=== PATIENT | female | born 1960 | race Caucasian/White ===

== ENCOUNTER 2021-09-26 08:37 | Outpatient (CLI) | payer OTHER, SELFPAY ==
[2021-09-26 12:14] LABS: Absolute Neutrophil Count 3.5 X10^3/uL (2.0-7.7); Basophil# 0.07 X10^3/uL; Basophil% 1.2 % (0-1); Eosinophil# 0.21 X10^3/uL; Eosinophils% 3.6 % (0-5); Hematocrit 42.2 % (37-47); Hemoglobin 13.8 g/dL (12.0-15.0); Mean Corp Hgb Conc 32.7 g/dL (32-36); Mean Corpuscular Hgb 31.5 pg (27.0-32.0); Mean Corpuscular Volume 96.3 fL (81-99); Mean Platelet Vol. 9.1 fl (6.2-12.0); Monocyte# 0.51 X10^3/uL; Monocyte% 8.8 % (0-10); NRBC Flagged by Analyzer 0 % (0-5); Neutrophil # 3.47 X10^3/uL (2.7-7.7); Neutrophil % 60.1 % (47-70); Platelet Count 279 K/mm3 (150-450); RBC Distribution Width CV 13.2 % (11.6-14.6); RBC Distribution Width SD 47.1 fl (35.1-43.9); Red Blood Count 4.38 M/mm3 (4.2-5.4); White Blood Count 5.8 K/mm3 (4.4-11.0)
[2021-09-26 12:32] LABS: Vitamin D,25 Hydroxy 8.5 ng/mL
[2021-09-26 12:40] LABS: ALB/GLOB Ratio 1.1 RATIO (0.9-2.4); AST(SGOT) 19 U/L (15-37); Alanine Aminotransfer ALT/SGPT 26 U/L (13-56); Alkaline Phosphatase 104 U/L (45-117); Anion Gap 7 (5-15); BUN 18 mg/dL (7-18); BUN/Creat Ratio 23.1 RATIO (10-20); Calcium,Total 9.5 mg/dL (8.5-10.1); Chloride 103 mmol/L (98-107); Cholesterol 160 mg/dL (200); Creatinine, Serum 0.78 mg/dL (0.55-1.02); EST Glomerular Filtration Rate 79 mL/min (>60); Est Glom Filt Rate - Afr Amer 96 mL/min (>60); Free T3 2.9 pg/mL (2.18-3.98); Globulin 3.5 g/dL (2.2-4.2); Glucose 92 mg/dL (74-106); Hemoglobin A1c 5.3 % (3.8-5.6); High Density Lipoprotein 70 mg/dL; Potassium 4.2 mmol/L (3.5-5.1); Protein, Total 7.5 g/dL (6.4-8.2); Sodium Level 137 mmol/L (136-145); T4 Free Direct 1.28 ng/dL (0.76-1.46); Thyroid Stim Hormone (TSH) 0.36 uIU/mL (0.358-3.74); Triglycerides 86 mg/dL; Very Low Density Lipoprotein 17 mg/dL (5-40)
== END 2021-09-26 23:59 | disposition short-term general hospital (02) ==
PROVIDERS: PCP Internal Medicine; Referring Provider Internal Medicine; Visit Provider Internal Medicine
DX: E03.9 Hypothyroidism, unspecified (principal); E78.5 Hyperlipidemia, unspecified
CPT/HCPCS: 36415; 80053; 80061; 82306; 83036; 84439; 84443; 84481; 85025

== ENCOUNTER 2021-10-17 13:22 | Outpatient (CLI) | payer OTHER, SELFPAY ==
--- NOTE | 2021-10-17 13:25 | BI_ITS ---
MAMMOGRAPHY - BILATERAL SCREENING REASON FOR EXAM: Female, 60 years old. Routine annual screening examination. PERTINENT HISTORY: Non-contributory. TECHNIQUE: Digital bilateral breast felix (3D mammographic acquisition) in the CC and MLO projections. 2-D mediolateral oblique (MLO) and craniocaudad (CC) views of both breasts were obtained. CAD: Full Field Digital Mammography with Computer Added Detection was performed. COMPARISON: Comparison is made with prior outside examination dated 08/02/2019 and 07/30/2018 FINDINGS: Breast Composition: There are scattered areas of fibroglandular density. Stable 7.1 mm x 4 mm nodular density in the retroareolar region of the left breast. Correlation with ultrasound is recommended. No other significant abnormalities are identified. BI/SCRN MAMM (CAD)W/FELIX BILAT IMPRESSION: Stable 7.1 mm x 4 mm nodular density in the retroareolar region of the left breast. Correlation with ultrasound is recommended. ASSESSMENT CATEGORY: BIRADS Category 0: Incomplete. Need additional imaging evaluation. A letter regarding these results will be sent to the patient by the facility within 30 days. Approximately 10% of breast cancers are not detected by mammography. A normal mammogram should not delay biopsy of a clinically suspicious abnormality. [id number] Electronically Signed: Vern Man MD at 15:47 EST ,
== END 2021-10-17 23:59 | disposition home or self-care (01) ==
LOC: OPBI 13:24
PROVIDERS: PCP Internal Medicine; Visit Provider Internal Medicine
DX: Z12.31 Encounter for screening mammogram for malignant neoplasm of breast (principal); N63.20 Unspecified lump in the left breast, unspecified quadrant
CPT/HCPCS: 77063; 77067

== ENCOUNTER 2021-10-24 15:22 | Outpatient (CLI) | payer OTHER, SELFPAY ==
--- NOTE | 2021-10-24 15:25 | US_ITS ---
STUDY: ULTRASOUND BREAST - LEFT REASON FOR EXAM: Female, 60 years old. Abnormal screening mammogram. TECHNIQUE: Axial and longitudinal images of the LEFT breast were performed with a high resolution ultrasound transducer. # OF IMAGES: 11 COMPARISON: Comparison is made with prior mammogram dated 10/17/2021. FINDINGS: LEFT Breast: The mammographic abnormality corresponds to a 7 mm x 7 mm x 4 mm well-defined hypoechoic solid nodule. Biopsy recommended. US/Breast Limited Unilateral IMPRESSION: 7 mm x 7 mm x 4 mm well-defined hypoechoic solid nodule in the retroareolar region. Biopsy recommended. ASSESSMENT CATEGORY: BIRADS Category 4: Suspicious - Biopsy Should Be Considered. A letter regarding these results will be sent to the patient by the facility within 30 days. Electronically Signed: Vern Man MD at 14:39 EST ,
== END 2021-10-24 23:59 | disposition home or self-care (01) ==
LOC: OPUS 15:23
PROVIDERS: PCP Internal Medicine; Visit Provider Internal Medicine
DX: R92.8 Other abnormal and inconclusive findings on diagnostic imaging of breast (principal); N63.20 Unspecified lump in the left breast, unspecified quadrant
CPT/HCPCS: 76642

== ENCOUNTER 2021-11-08 13:31 | Outpatient (CLI) | payer OTHER, SELFPAY ==
--- NOTE | 2021-11-08 | IMM_PTH ---
PATIENT: RAÚL CRAIG LOC: [facility] U#:[id number] AGE/SX: 60/F ROOM: RE11/08/[address]: Dr. Sung Cloud MD : 1960 BED: DIS: 11/08/2021 SPEC #: [id number] RECD: 11/12/21 13:41 STATUS: KATHYA REQ #: [id number] SUSAN: 11/08/21 00:[address]: Sung Clodu DEPT: IMMUNOHISTOCHEMISTRY RECD BY: Soumya Back ENTERED: 11/12/21 13:42 SP TYPE: IMMUNO OTHR DR: Dr. Liza Castillo MD Tissues: Left breast, NOS Procedures: CK8 (initial) SMA (add) CALPONIN-1 (add) P40 (add) PHYSICIAN & INSTITUTION [place] [id number] SPECIMEN INFORMATION: Tissue Source: Left breast Clinical Info: Left breast mass Specimen Number: [id number] CPT code: 86872, 29983 x3 METHODOLOGY: Deparaffinized sections of prefer/formalin-fixed tissue or PAP/DQ stained slides are incubated with monoclonal/polyclonal antibodies/oligonucleotide probes. Localization is made via biotin free immunoperoxidase method. Appropriate controls are performed and reacted as expected. Results on target cell population are indicated in the following table: RESULTS: ANTIBODY / CLONE RESULT P40 (BC28) positive Actin (1A4) positive CK8 (90oeavV67) positive Calponin-1 (WA485R) positive These tests were developed and their performance characteristics determined by [facility]. They may not have been cleared or approved by the U.S. Food and Drug Administration. The FDA has determined that such clearance or approval is not necessary. The above immunohistochemical/dualISH markers are ordered and reviewed by the Pathologist. INTERPRETATION: Left breast, 9 o?clock, ultrasound-guided biopsy: Benign breast tissue. AM:evelio 11/13/2021
--- NOTE | 2021-11-08 | BRBX_PTH ---
PATIENT: RAÚL CRAIG LOC: [facility] U#:[id number] AGE/SX: 60/F ROOM: RE11/08/[address]: Dr. Sung Cloud MD : 1960 BED: DIS: 11/08/2021 SPEC #: [id number] RECD: 11/08/21 14:27 STATUS: KATHYA HERNANDEZ #: [id number] SUSAN: 11/08/21 00:[address]: Sung Cloud DEPT: SURGICAL PATHOLOGY RECD BY: Elba Rivas ENTERED: 11/09/21 08:55 SP TYPE: BREAST BX OTHR DR: Dr. Liza Castillo MD Tissues: Left breast, NOS Procedures: Surgery Specimen Level IV HEADER OPERATION: Ultrasound-guided biopsy, left breast PRE-OP DIAGNOSIS: Left breast mass TISSUE SUBMITTED: Left breast mass 9 o?clock retroareolar ISCHEMIC TIME: 1 minute FIXATION TIME: 53 hours MICROSCOPIC DIAGNOSIS Left breast mass, core biopsy: Nonproliferative fibrocystic change and adenosis. Focal intraductal hyperplasia without atypia. No evidence of malignancy. See comment. AM:evelio 11/12/2021 COMMENT Immunohistochemistry ([id number]) supports the above diagnosis. MICROSCOPIC DESCRIPTION Slides are reviewed. GROSS DESCRIPTION Received in fixative is one container labeled with the patient's name and designated left breast. The specimen consists of multiple irregular and elongated fragments of roberson tissue that in aggregate measure 1.6 x 0.5 x 0.1 cm. The specimen is totally submitted in one cassette. / AM:evelio 11/09/2021 TC:5 CPT: 24533
--- NOTE | 2021-11-08 13:35 | US_ITS ---
ULTRASOUND GUIDED CORE BIOPSY REASON FOR EXAM: Female, 60 years old. ABN MAMM PERTINENT HISTORY: Left breast mass COMPARISON: Left breast ultrasound from 10/24/2021 TECHNIQUE: Images taken during breast biopsy by Dr. Cloud were submitted for interpretation. The left retroareolar breast lesion is identified at the 9 o''clock position. A biopsy needle is advanced into the lesion and a sample is taken under ultrasound guidance. A clip is then successfully placed at the site of biopsy utilizing ultrasound. There are no immediate abnormal fluid collections or other acute findings in the submitted images. US/US Breast Biopsy 1st Lesion IMPRESSION: Interpretation of left breast mass ultrasound-guided biopsy as detailed above. Please see intraoperative report for detailed findings. Electronically Signed: Ernesto Oliveira, at 13:35 EDT ,
--- NOTE | 2021-11-08 14:23 | PCM.OP.PRO ---
Procedure Report Date of Procedure: 11/08/21 Procedure: Core needle biopsy of left breast Description: After a detailed discussion regarding the risks and benefits of the biopsy procedure, the patient was positioned supine with her arm overhead in the procedure room. Formal, written consents were obtained prior to positioning. Ultrasound was used to localize the lesion in the retroareolar space at the 9 o'clock position to the left nipple. Locally 1% lidocaine was infiltrated about the mass using ultrasound guidance. Once the area was sufficiently anesthetized, a small stab incision was made in the skin and the Cuedd Cormax device was introduced percutaneously. Ultrasound was used to guide the tip of the device to the border of the suspicious lesion. Then the mass was serially sampled with 3 cores which were placed in solution for pathologic processing. A marking clip was then placed under ultrasound guidance just deep to the mass. Pressure was applied until hemostasis was obtained. The skin was cleaned and Steri-Strips were applied over the stab incision for the biopsy procedure. Patient tolerated the procedure with no issues. EBL: Less than 5 mL Complications: None Procedures Integumentary 16xxx-193xx: 07233 Bx breast 1st lesion us imag
== END 2021-11-08 23:59 | disposition home or self-care (01) ==
PROVIDERS: PCP Internal Medicine; Visit Provider Surgery
DX: N60.12 Diffuse cystic mastopathy of left breast (principal); N60.22 Fibroadenosis of left breast; N62 Hypertrophy of breast
CPT/HCPCS: 19083; 88305; 88341; 88342

== ENCOUNTER 2021-11-21 15:30 | Outpatient (RCR) | payer OTHER, SELFPAY ==
--- NOTE | 2021-10-17 16:35 | HP.PTEVAL ---
Patient's Visit Information RAÚL CRAIG is a 60 year old F referred to Physical Therapy by OSIEL Hilton with a diagnosis of Right Shoulder. Date of Evaluation: 10/17/21 Physical Therapist: Marci Bustillos DPT - Visit Plan Frequency: 2x /Week Duration: 4 Weeks Plan: Focus on scapular s/s- and functional movement without pain - Subjective May 2019 she injured her right RTC- started bothering her Mar 2020. October 2020 she had her first injection and then had another one a week or two ago. She reports that her bicep is shredding and that is a constant pain. The injection took the shoulder pain away but she still has the biceps pain. The pain comes and goes- takes Naproxen with hopes that it helps. Agg: movement Worst: 8/10 Eases: keeping it close to her Best: 0/10. Pain is located along the biceps- describes the pain as a knife in her arm. Pain does not radiate at this time. Does have carpal tunnel so she has no N/T due to the shoulder. No BATES, blurred vision, dizziness. No problems with finger dexterity or chainstitch zipper setter strength. 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 Right hand dominate. Feels that she is 100% better since the injection- except the muscle. Sleep: no issues- side sleeper. Has had x-rays but no MRI at this time. PMHx/Meds: no changes since ortho. - Objective Posture: FH, RS- can correct with verbal cues but does not maintain. Palpation: tender along bicipital groove and infraspinatus. ROM: WFL in all planes- discomfort with end range abduction. Strength: Scap: fair plus, Shoulder: 4+/5 with discomfort ER testing, Elbow: 5/5, Wrist: 5/5, Refrigerator Repairman: equal bilateral. Sensation: WNL - Special Tests R Shoulder Lift Off Test - Subscapular Tear: Positive R Shoulder Empty Can - SS: Positive R Shoulder Belly Press - SupScap: Positive R Shoulder Neer - Impingement: Positive R Shoulder Nguyen Sebastien - Impingement: Positive R Shoulder Speeds Test - Labrum/Biceps: Positive - Balance/Special Test Scores Quick DASH Score: 29.5450 - Goals Goal 1:: Patient will be I with HEP and progression Goal Time Frame: 4-6 Weeks Goal 2:: Patient will maintain proper posture t/o tx session to demo increased scap s/s. Goal Time Frame: 4-6 Weeks Goal 3:: Patient will report no more than 2/10 pain for 1 week Goal Time Frame: 4-6 Weeks Goal 4:: Patient will report 80% improvement subjectively. Goal Time Frame: 4-6 Weeks - Rehabilitation Potential Physical Therapy Diagnosis: Patient present with hypomobility- she has decreased pain free ROM, UE and scapular s/s and muscular endurance leading to poor posture and increased pain with ADL's. Rehabilitation Potential: Fair - Anticipated Interventions Patient/Client Instruction: Educate patient on: Benefits of Fitness Program Therapeutic Exercise to Include: Strength training, Endurance training, Coordination, Agility training, Body mechanics, Postural training, Flexibilty training, Neuromotor development, Passive ROM, Active ROM, Scapular Strength/Stabilization For the Purpose of:: To improve muscle performance and motor function TENS: Yes Cryotherapy (ice pack, ice massage): Yes Thermo therapy (hot pack): Yes Ultrasound (thermal/non thermal): Yes For the Purpose of:: To decrease pain Thank you for the opportunity to evaluate your patient. For Medicare and Medicare HMO plans, please review the plan of care and approve it. It will need to be FAXED BACK to us at [phone] for Medicare purposes. For Medicare only, by signing this I certify the plan of care. Please let me know if there are questions or concerns regarding this plan of care. Physician Signature: Date:
--- NOTE | 2021-11-21 16:26 | HP.PTDCSUM ---
It has been my pleasure to treat RAÚL CRAIG referred by OSIEL iHlton, with the diagnosis of Right Shoulder for a total of 9 visit(s). Discharge Date: 11/21/21 Please see the following information for a summary of their discharge status. Subjective: Doing better ..certain movements side to side and pulling Right shoulder Pain Intensity (Out of 10): 3 Left shoulder Pain Intensity (Out of 10): 6 % Improvement: 80 Objective/Function: POSTURE: mild forward posture. MMT: RTC 4/5 ,DELTOID 4-/5 MILD PAIN. AROM: SHOULDER FLEXION/ABD 160 degrees. ER 90M ,IR REACH BEHIND BACK L1 Goal 1:: Patient will be I with HEP and progression Goal Progress: Goal Met Goal 2:: Patient will maintain proper posture t/o tx session to demo increased scap s/s. Goal Progress: Progressing Goal 3:: Patient will report no more than 2/10 pain for 1 week Goal Progress: Progressing Goal 4:: Patient will report 80% improvement subjectively. Goal Progress: Goal Met Plan: D/C TO HEP Discharge Comments: HEP,MAY NEED TO RTD TO CHECK LEFT SHOULDER APPEAR LONG HEAD BICEP TENDINISTIS If there are questions or concerns regarding this patient's physical therapy, please feel free to call me at [phone]. Thank you for the referral of this patient. Sincerely, Suresh Warner, PT, Cert MDT, OCS Balance/Gait/Functional tests - Balance/Special Test Scores Quick DASH Score: 29.5450
== END 2021-11-21 19:00 | disposition home or self-care (01) ==
LOC: PT 15:30
PROVIDERS: PCP Internal Medicine; Referring Provider Physician Assistant; Visit Provider Physician Assistant
DX: M75.21 Bicipital tendinitis, right shoulder (principal); M75.41 Impingement syndrome of right shoulder
CPT/HCPCS: 97110; 97530

== ENCOUNTER 2021-11-29 16:38 | Outpatient (CLI) | payer OTHER, SELFPAY | END 2021-11-29 23:59 | disposition home or self-care (01) | LOC: LABSPEC 16:39 | PROVIDERS: PCP Internal Medicine; Visit Provider Surgery | DX: N61.1 Abscess of the breast and nipple (principal) | CPT/HCPCS: 87070; 87075; 87077; 87186; 87205 ==

== ENCOUNTER → 2021-12-19 | Outpatient (CLI) | payer OTHER, SELFPAY ==
[2021-12-19 13:27] LABS: M R Staph aureus DNA By PCR Negative (Negative); Probe Check PASS; Specimen Processing Control PASS
== END | disposition home or self-care (01) ==
LOC: LABSPEC 11:10
PROVIDERS: PCP Internal Medicine; Referring Provider Surgery; Visit Provider Surgery
DX: Z22.322 Carrier or suspected carrier of Methicillin resistant Staphylococcus aureus (principal)
CPT/HCPCS: 87641

== ENCOUNTER → 2022-03-25 | Outpatient (CLI) | payer OTHER, SELFPAY ==
[2022-03-25 16:39] LABS: ALB/GLOB Ratio 1.1 RATIO (0.9-2.4); AST(SGOT) 18 U/L (15-37); Alanine Aminotransfer ALT/SGPT 32 U/L (13-56); Albumin, Serum 3.9 g/dL (3.2-5.0); Alkaline Phosphatase 96 U/L (45-117); Anion Gap 7 (5-15); BUN 15 mg/dL (7-18); BUN/Creat Ratio 14.3 RATIO (10-20); Calcium,Total 9.7 mg/dL (8.5-10.1); Chloride 106 mmol/L (98-107); Cholesterol 184 mg/dL (200); Creatinine, Serum 1.05 mg/dL (0.55-1.02); EST Glomerular Filtration Rate 56 mL/min (>60); Est Glom Filt Rate - Afr Amer 68 mL/min (>60); Free T3 2.8 pg/mL (2.18-3.98); Globulin 3.4 g/dL (2.2-4.2); Glucose 98 mg/dL (74-106); High Density Lipoprotein 75 mg/dL; Potassium 3.8 mmol/L (3.5-5.1); Protein, Total 7.3 g/dL (6.4-8.2); Sodium Level 141 mmol/L (136-145); T4 Free Direct 1.43 ng/dL (0.76-1.46); Triglycerides 280 mg/dL; Very Low Density Lipoprotein 56 mg/dL (5-40)
== END | disposition home or self-care (01) ==
LOC: LAB 14:15
PROVIDERS: PCP Internal Medicine; Referring Provider Internal Medicine; Visit Provider Internal Medicine
DX: E55.9 Vitamin D deficiency, unspecified (principal)
CPT/HCPCS: 36415; 80053; 80061; 82306; 84439; 84443; 84481

== ENCOUNTER → 2022-05-20 | Outpatient (CLI) | payer OTHER, SELFPAY ==
--- NOTE | 2022-05-20 08:55 | US_ITS ---
STUDY: ULTRASOUND BREAST - LEFT REASON FOR EXAM: Female, 61 years old. Six-month follow-up following left breast biopsy. TECHNIQUE: Axial and longitudinal images of the LEFT breast were performed with a high resolution ultrasound transducer. # OF IMAGES: 15 COMPARISON: Comparison is made with prior study dated 10/24/2021. FINDINGS: LEFT Breast: Stable 6 mm x 6 mm x 5 mm hypoechoic well-defined nodule at the 9 o''clock position of the breast. A tissue marker is seen within it. US/Breast Limited Unilateral IMPRESSION: Stable appearance of the hypoechoic nodule at the 9 o''clock position the breast in the retroareolar region. A tissue clip marker is seen within it. ASSESSMENT CATEGORY: BIRADS Category 2: Benign. A letter regarding these results will be sent to the patient by the facility within 30 days. Electronically Signed: Vern Man MD at 10:49 EDT ,
== END | disposition home or self-care (01) ==
LOC: OPUS 08:53
PROVIDERS: PCP Internal Medicine; Visit Provider Surgery
DX: N63.20 Unspecified lump in the left breast, unspecified quadrant (principal); Z98.890 Other specified postprocedural states
CPT/HCPCS: 76642

== ENCOUNTER → 2022-06-27 | Outpatient (CLI) | payer OTHER, SELFPAY ==
[2022-06-27 17:26] LABS: Free T3 2.8 pg/mL (2.18-3.98); T4 Free Direct 1.26 ng/dL (0.76-1.46); Thyroid Stim Hormone (TSH) 0.69 uIU/mL (0.358-3.74)
== END | disposition home or self-care (01) ==
LOC: LAB 16:10
PROVIDERS: PCP Internal Medicine; Visit Provider Internal Medicine
DX: E03.9 Hypothyroidism, unspecified (principal)
CPT/HCPCS: 36415; 84439; 84443; 84481

== ENCOUNTER 2022-10-16 07:17 | Day surgery (SDC) | payer OTHER, SELFPAY ==
[2022-10-16] VITALS (7 sets, daily range): BP systolic 95–133; BP diastolic 50–68; PULSE 72–93; RESP 16–18; TEMP 36.3–36.6; O2SAT 94–99; BMI 32.8
[2022-10-16] MEDS: Lactated Ringers 1,000 ML 15 ML IV (07:55)
--- NOTE | 2022-10-16 08:08 | H&P.OPEN ---
HPI - General HPI Narrative RAÚL CRAIG, is a 61 F who presents for screening colonoscopy. Patient's last colonoscopy was in [address] Ramirez had a couple polyps at that time. Patient denies any family history of colon cancer. Patient denies any chronic abdominal pain/nausea/vomiting/reflux. Patient has bowel movements daily. Denies any blood PFSH Medical History (Updated 10/16/22 @ 08:[address] Erika Ennis MD) Alcohol use Back pain Cardiology follow-up encounter Difficulty chewing Easy bruising Former smoker Gastric reflux High cholesterol History of edema History of irregular heartbeat History of pain when walking History of stress test Hyperlipemia Hypothyroidism Leg cramps Low iron Nonhealing surgical wound Post-menopausal Shortness of breath on exertion Thyroid disease Ulnar neuropathy at elbow Wears dentures Wears glasses Home Medications miscellaneous medical supply #1 ea 10/11/21 [Rx Last Taken Unknown] levothyroxine 137 mcg tablet 137 mcg PO DAILY #90 tabs 04/26/22 [Rx Last Taken 10/16/22] cholecalciferol (vitamin D3) 25 mcg (1,000 unit) capsule 25 mcg PO BID 09/12/22 [History Last Taken Unknown] simvastatin 10 mg tablet 10 mg PO QHS #90 tabs 09/30/22 [Rx Last Taken Unknown] naproxen 250 mg tablet 220 mg PO DAILY 10/11/22 [History Last Taken Unknown] potassium chloride 10 mEq tablet,extended release (Klor-Con) 10 meq PO QHS 10/11/22 [History Last Taken Unknown] Allergy/AdvReac Type Severity Reaction Status Date / Time Sulfa (Sulfonamide Allergy Hives Verified 10/16/22 07:43 Antibiotics) Family History Grandfather Cancer Grandmother Myocardial infarction Diabetes Mother Cerebral hemorrhage Father Hypertension Gout Surgical History (Updated 10/11/22 @ 15:47 by Michelle Elkins) H/O colonoscopy History of History of left breast biopsy History of removal of cyst Social History Smoking Status: Former smoker Tobacco: How many years used: 21 alcohol intake: current alcohol intake frequency: 0-2 drinks per day Alcohol type: beer substance use type: does not use what type of physical activity do you participate in: walking Past Medical/Surgical History Planned Operation Planned Operative Procedure/s: CSCOPE OA Previous Hospitalizations/Surgeries HX Hospitalizations: No Any Problems With Anesthesia: No You/Your Family Experience Fever (Hyperthermia) With Anes: No Cholinesterase deficiency: No Cardiovascular Hx of Irregular Heartbeat and/or Afib: Yes Hx Heart Attack: No Hx Congestive Heart Failure: No Hx Rheumatic Fever: No Hx Hypertension: No Hx Internal Defibrillator: No Hx Pacemaker: No Hx Pain in Legs when Walking/Leg Cramps: Yes Respiratory HX of Shortness of Breath: No Hx Chronic Obstructive Pulmonary Disease (COPD): No Hx Asthma: No Hx Emphysema: No Hx Sleep Apnea: No Hx Respiratory Tract Infection/Cold (presently): No Do You Snore Loudly (louder than talking or can be heard): Yes Do You Often Feel Tired/ Fatigued/ Sleepy Dring Daytime?: Yes Has Anyone Observed You Stop Breathing During Sleep?: No Result (for STOP score): Positive Smoking Status: Former smoker Gastrointestinal Hx Gastroesophageal Reflux: No Hx Gastrointestinal Bleed: No Hx Ulcer: No Neurological Hx Seizures: No Hx Multiple Sclerosis: No Hx Parkinson's Disease: No Hx Head/Neck Injury: No Hx Headaches: No Hx Back Injury/Pain: No Does patient have nerve stimulator: No Blood Disorder Hx High Cholesterol: Yes Hx Hepatitis: No Hx Anemia: No Reproduction : No Is Patient Lactating: No Genitourinary Hx Renal Disease: No Hx Dialysis: No Musculoskeletal Hx Arthritis: No Hx Gout: No Endocrine Hx Diabetes: No Thyroid Disease: Yes Psycho/Social Hx Anxiety: No Hx Depression: No Hx Dementia: No Miscellaneous Hx Cancer: No Recent Exposure to Contagious Disease: No Allergies Sulfa (Sulfonamide Antibiotics) Allergy (Verified 10/16/22 07:43) Hives Discharge Is Pt Admitted From a Skilled Nursing, or a Usp: No After D/C, Where Do you Plan to Go: Return Home From the [facility] History Number of Risk Factors: 2 Vital Signs Vital Signs Vital Signs: 10/16/22 07:52 10/16/22 07:52 Temperature 97.4 F L Temperature Source Temporal Pulse Rate 93 Respiratory Rate 16 Respiratory Pattern Normal Blood Pressure 133/68 H Blood Pressure Mean 89 Blood Pressure Source Monitor Blood Pressure Position Sitting Blood Pressure Location Left Arm Pulse Ox 99 Oxygen Delivery Method Room Air Weight Weight: 209 lb 7.026 oz Body Mass Index (BMI) 32.8 Physical Exam Const alert, oriented x3 and no apparent distress HEENT normocephalic and head/scalp atraumatic Resp normal respiratory effort Cardio regular rate GI soft to palpation and non-tender; Negative for non-distended Palpation: Negative for guarding Extremity no clubbing, cyanosis or edema Neuro CN's II-XII intact bilaterally Psych mental status grossly normal Assessment & Plan Assessment/Plan (1) Hx of colonic polyps: Surgery Risks - Colonoscopy Risks Include but are not Limited To: Risks include but are not limited to: Bleeding, perforation requiring further surgery, inability to complete colonoscopy requiring barium enema.
--- NOTE | 2022-10-16 09:22 | OP.COLON_ITS ---
Patient Name: Blas Ayala Procedure Date: 10/16/2022 8:47 AM Date of : 1960 Age: 61 Procedure: Colonoscopy Indications: High risk colon cancer surveillance: Personal history of colonic polyps Providers: Erika Ennis MD Medicines: Monitored Anesthesia Care Patient Profile: This is a 61 year old female. Last Colonoscopy: 2011. Complications: No immediate complications. Procedure: Pre-Anesthesia Assessment: - Prior to the procedure, a History and Physical was performed, and patient medications and allergies were reviewed. The patient's tolerance of previous anesthesia was also reviewed. The risks and benefits of the procedure and the sedation options and risks were discussed with the patient. All questions were answered, and informed consent was obtained. Prior Anticoagulants: The patient has taken no previous anticoagulant or antiplatelet agents. ASA Grade Assessment: Per anesthesia. After reviewing the risks and benefits, the patient was deemed in satisfactory condition to undergo the procedure. After I obtained informed consent, the scope was passed under direct vision. Throughout the procedure, the patient's blood pressure, pulse, and oxygen saturations were monitored continuously. The Colonoscope was introduced through the anus and advanced to the cecum, identified by the appendiceal orifice, ileocecal valve and palpation. The colonoscopy was performed without difficulty. The patient tolerated the procedure well. The quality of the bowel preparation was good. Scope In: 9:00:24 AM Scope Withdrawal Time 0 hours 6 minutes 27 seconds Scope Out: 9:14:35 AM Total Procedure Duration Time 0 hours 14 minutes 11 seconds Findings: Hemorrhoids were found on perianal exam. Non-bleeding internal hemorrhoids were found. The hemorrhoids were Grade I (internal hemorrhoids that do not prolapse). The entire examined colon appeared normal. Impression: - Hemorrhoids found on perianal exam. - Non-bleeding internal hemorrhoids. - The entire examined colon is normal. - No specimens collected. Recommendation: - Discharge patient to home. - Resume previous diet. - Continue present medications. - Repeat colonoscopy in 10 years for screening purposes. Procedure Code(s): --- Professional --- G0105, PT, Colorectal cancer screening; colonoscopy on individual at high risk Diagnosis Code(s): --- Professional --- Z86.010, Personal history of colonic polyps K64.0, First degree hemorrhoids CPT copyright 2017 [employer] [place] [employer]. All rights reserved. The codes documented in this report are preliminary and upon aeronautics teacher review may be revised to meet current compliance requirements. MD Erika Lozano MD 10/16/2022 9:22:12 AM This report has been signed electronically. Number of Addenda: 0 Note Initiated On: 10/16/2022 8:47 AM
--- NOTE | 2022-10-16 09:23 | OP.CCLET_ITS ---
10/16/2022 Liza Castillo [facility] [address] [place] [address] Re : Colonoscopy procedure for Blas Ayala Dear Dr. Castillo This procedure was performed on Sunday, October 16, 2022. My impressions and recommendations are as follows: Impressions : - Hemorrhoids found on perianal exam. - Non-bleeding internal hemorrhoids. - The entire examined colon is normal. - No specimens collected. Recommendations : - Discharge patient to home. - Resume previous diet. - Continue present medications. - Repeat colonoscopy in 10 years for screening purposes. My findings are described in the full procedure note, which is enclosed. If I can be of further assistance, please feel free to contact me at Doctor phone number(s): , Work: . Sincerely, MD Erika Lozano MD 10/16/2022 9:22:12 AM This report has been signed electronically.
== END 2022-10-16 10:51 | disposition home or self-care (01) ==
LOC: EN 07:18 → AC 07:20
PROVIDERS: PCP Internal Medicine; Referring Provider Internal Medicine; Visit Provider Surgery
PROC: 0DJD8ZZ Inspection of Lower Intestinal Tract, Via Natural or Artificial Opening Endoscopic (ICD-10-PCS; CPT 45378; principal; 2022-10-16 08:10)
DX: Z12.11 Encounter for screening for malignant neoplasm of colon (principal); K64.0 First degree hemorrhoids; E78.00 Pure hypercholesterolemia, unspecified; E03.9 Hypothyroidism, unspecified; Z79.899 Other long term (current) drug therapy; Z86.010 Personal history of colon polyps; Z87.891 Personal history of nicotine dependence
CPT/HCPCS: G0105; J7120; J2405

== ENCOUNTER → 2022-10-28 | Outpatient (CLI) | payer OTHER, SELFPAY ==
--- NOTE | 2022-10-28 08:43 | BI_ITS ---
MAMMOGRAPHY - BILATERAL SCREENING REASON FOR EXAM: Female, 61 years old. Routine annual screening examination. PERTINENT HISTORY: Non-contributory. Prior left ultrasound-guided breast biopsy. TECHNIQUE: Digital bilateral breast felix (3D mammographic acquisition) in the CC and MLO projections. 2-D mediolateral oblique (MLO) and craniocaudad (CC) views of both breasts were obtained. CAD: Full Field Digital Mammography with Computer Added Detection was performed. COMPARISON: Comparison is made with prior study dated October 17, 2021. FINDINGS: Breast Composition: There are scattered areas of fibroglandular density. There are no dominant masses or suspicious calcifications. A tissue clip marker is now seen within a 6 mm nodular density in the retroareolar region of the left breast. No other significant abnormalities are identified. There has been no significant change since the prior study. BI/SCRN MAMM (CAD)W/FELIX BILAT IMPRESSION: Stable bilateral screening mammogram. Yearly follow-up mammogram recommended. (A) ASSESSMENT CATEGORY: BIRADS Category 2: Benign. A letter regarding these results will be sent to the patient by the facility within 30 days. Approximately 10% of breast cancers are not detected by mammography. A normal mammogram should not delay biopsy of a clinically suspicious abnormality. [id number] Electronically Signed: Vern Man MD at 9:55 EST ,
== END | disposition home or self-care (01) ==
LOC: OPBI 08:41
PROVIDERS: PCP Internal Medicine; Visit Provider Surgery
DX: Z12.31 Encounter for screening mammogram for malignant neoplasm of breast (principal)
CPT/HCPCS: 77063; 77067

== ENCOUNTER → 2022-11-04 | Outpatient (CLI) | payer OTHER, SELFPAY ==
--- NOTE | 2022-11-04 15:35 | NEURO ---
NCS and/or EMG Patient Report Ordering Doctor: Harjinder Jurado DATE OF SERVICE: 11/04/22 Indication: Approximately two months of numbness and tingling in the 4/5th digits of the left hand. 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 No axial or radicular neck pain. Evaluate for entrapment neuropathy. Findings: Nerve conduction studies were performed in the left upper extremity. The left median motor study recording the abductor pollicis brevis showed a normal amplitude, prolonged distal latency and normal conduction velocity. The left ulnar motor study recording the abductor digiti minimi showed a normal amplitude, normal distal latency and normal conduction velocity. Conduction block and focal slowing was present across the elbow. The left ulnar motor study recording the first dorsal interosseous showed a normal amplitude, normal distal latency and normal conduction velocity. Conduction block and focal slowing was present across the elbow. The left median sensory response recording digit two showed a reduced amplitude, prolonged latency and slowed conduction velocity. The left ulnar sensory response recording digit five showed a normal amplitude, latency and conduction velocity. The left radial sensory response recording over the extensor snuff box showed a normal amplitude, latency and conduction velocity. Needle EMG of the left upper extremity muscles was performed. Active denervation was seen in the flexor digitorum profundus (medial) and first dorsal interosseous muscles. Motor units in the flexor digitorum profundus (medial) and first dorsal interosseous were largely normal in morphology, but with significantly reduced recruitment. All other motor unit morphology, activation and recruitment patterns were normal. Impression: This is an abnormal study. There is electrophysiologic evidence of ulnar neuropathy across the elbow. The pathophysiology is predominately demyelination. In addition, there is electrophysiologic evidence of a concurrent, mild, median neuropathy across the left wrist. Adrian Suh D.O. Multi Select Codes Neurology Neurology Interp Codes: 98497-46 Musc test done w/n test comp (interp) and 06061-67 Nrv cndj test 7-8 studies (interp)
== END | disposition home or self-care (01) ==
LOC: PSN 14:25
PROVIDERS: PCP Internal Medicine; Referring Provider Orthopaedic Surgery Sports Medicine; Visit Provider Orthopaedic Surgery Sports Medicine
DX: G56.22 Lesion of ulnar nerve, left upper limb (principal)
CPT/HCPCS: 95886; 95910

== ENCOUNTER 2022-12-11 06:05 | Day surgery (SDC) | payer OTHER, SELFPAY ==
[2022-12-11 06:39] VITALS: BP 98/64; PULSE 55; RESP 18; TEMP 36.1; O2SAT 100; BMI 31.6
[2022-12-11] MEDS: Lactated Ringers 1,000 ML 15 ML IV ×2 (06:39→08:20)
--- NOTE | 2022-12-11 07:06 | PCM.HP.STD ---
HPI - General HPI Narrative RAÚL CRAIG, is a 62 F who presents for left elbow tunnel release. No changes to history and physical exam. Left upper extremity marked. 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 Leave the dressing on until follow-up in 2 days time. Will use local anesthetic try to avoid postoperative narcotics with simply oral Tylenol and anti-inflammatories. Patient understood wishes to proceed no further questions or concerns. [facility] [address] [place] [address] OFFICE VISIT Date of Service:? 11/19/22 MR#: [id number] Acct: [id number] Name:RAÚL PERALTA Rep #: [id number] : 1960 ? ? Provider: Dr. Harjinder Jurado MD Age/Sex:? 61/F ? ? Location: [facility] Status: Signed Intake Vital Signs ? 09/12/2315:24 10/16/2306:52 Height 5 ft 7 in 5 ft 7 in Intake Visit Reasons:?LEFT HAND Chief Complaint: fingers numb on left hand Is patient in pain?: Yes Pain scale (1-10): 8 Allergies Sulfa (Sulfonamide Antibiotics) Allergy (Verified 11/19/22 15:30) Hives Medications miscellaneous medical supply #1 ea 10/11/21 [Rx Confirmed 11/19/22] levothyroxine 137 mcg tablet 137 mcg PO DAILY #90 tabs 04/26/22 [Rx Confirmed 11/19/22] cholecalciferol (vitamin D3) 25 mcg (1,000 unit) capsule 25 mcg PO BID 09/12/22 [History Confirmed 11/19/22] simvastatin 10 mg tablet 10 mg PO QHS #90 tabs 09/30/22 [Rx Confirmed 11/19/22] naproxen 250 mg tablet 220 mg PO DAILY 10/11/22 [History Confirmed 11/19/22] potassium chloride 10 mEq tablet,extended release (Klor-Con) 10 meq PO QHS 10/11/22 [History Confirmed 11/19/22] PFSH Medical History? Alcohol use Back pain Cardiology follow-up encounter Difficulty chewing Easy bruising Former smoker Gastric reflux High cholesterol History of edema History of irregular heartbeat History of pain when walking History of stress test Hyperlipemia Hypothyroidism Left carpal tunnel syndrome Leg cramps Low iron Nonhealing surgical wound Post-menopausal Shortness of breath on exertion Thyroid disease Ulnar neuropathy at elbow Wears dentures Wears glasses Surgical History? H/O colonoscopy History of History of left breast biopsy History of removal of cyst Family History? Grandfather CancerGrandmother Myocardial infarction DiabetesMother Cerebral hemorrhageFather Hypertension Gout Social History? Smoking Status:? Former smoker Tobacco: How many years used:? 21 alcohol intake:? current alcohol intake frequency: 0-2 drinks per day Alcohol type: beer substance use type:? does not use what type of physical activity do you participate in:? walking HPI LEFT HAND Details: Parts of this documentation were recorded by a scribe, this documentation accurately reflects the service provided and the decisions made by me, Dr. Harjinder Jurado MD 11/19/22 3054. RAÚL CRAIG is a 61 year old F here today for? FU NCS for cubital tunnel syndrome.? Patient only gets symptoms in the fourth and fifth digit numbness and tingling pain radiating from the elbow.? Never any numbness or tingling in the thumb index or middle finger.? 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 Ortho Exam General General: Yes no acute distress Neurologic: Yes alert and Yes oriented x3 Psychologic: Yes reasonable and appropriate Right Wrist/Hand Skin/Wound: No Ecchymosis Left Wrist/Hand Skin/Wound: Yes CDI, No Ecchymosis, Yes nail intact, Yes capillary refill normal and No erythema Left Wrist: No Tinel's and No Phalen's Left Elbow Skin/Wound: Yes CDI ROM: Yes Flexion 0-140 Sensation: Radial: I, Ulnar: D and Median: I Motor: 1st Dorsal Interosseous: 4 ELBOW: pos wartenburg sign. Supplemental Info [facility] [address] [address] MR#:? [id number] Acct: [id number] Name: RAÚL CRAIG Rep #: [id number] :? 1960 ?61 From: Israel Suh DO Referring Dr: ? ? Harjinder Jurado MD Status:? REG CLI Location:? PSN Date:? 11/04/22 Sex: F C NCS and/or EMG Patient Report Ordering Doctor: Harjinder Jurado DATE OF SERVICE: 11/04/22 Indication: Approximately two months of numbness and tingling in the 4/5th digits of the left hand. 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 No axial or radicular neck pain. Evaluate for entrapment neuropathy. Findings: Nerve conduction studies were performed in the left upper extremity. The left median motor study recording the abductor pollicis brevis showed a normal amplitude, prolonged distal latency and normal conduction velocity. The left ulnar motor study recording the abductor digiti minimi showed a normal amplitude, normal distal latency and normal conduction velocity. Conduction block and focal slowing was present across the elbow. The left ulnar motor study recording the first dorsal interosseous showed a normal amplitude, normal distal latency and normal conduction velocity. Conduction block and focal slowing was present across the elbow. The left median sensory response recording digit two showed a reduced amplitude, prolonged latency and slowed conduction velocity. The left ulnar sensory response recording digit five showed a normal amplitude, latency and conduction velocity. The left radial sensory response recording over the extensor snuff box showed a normal amplitude, latency and conduction velocity. Needle EMG of the left upper extremity muscles was performed.? Active denervation was seen in the flexor digitorum profundus (medial) and first dorsal interosseous muscles.? Motor units in the flexor digitorum profundus (medial) and first dorsal interosseous were largely normal in morphology, but with significantly reduced recruitment. All other motor unit morphology, activation and recruitment patterns were normal.? Impression: This is an abnormal study.? There is electrophysiologic evidence of ulnar neuropathy across the elbow. The pathophysiology is predominately demyelination. In addition, there is electrophysiologic evidence of a concurrent, mild, median neuropathy across the left wrist. Adrian Suh D.O. Multi Select Codes Neurology Neurology Interp Codes: 62561-05 Musc test done w/n test comp (interp) and 96443-46 Nrv cndj test 7-8 studies (interp) Coding Level of Care Code Off vis,est,level 3 Diagnoses Ulnar nerve entrapment? G56.20 Left carpal tunnel syndrome? G56.02 Assessment and Plan Assessment and Plan (1) Ulnar nerve entrapment: ?Status:?Acute ?Plan: 61 year old F here today for? FU NCS for left cubital tunnel syndrome. Test shows cubital tunnel syndrome and mild CTS. the patient has no signs or clinical symptoms of carpal tunnel syndrome this seems mostly consistent with cubital tunnel syndrome therefore after discussion of the pros and cons risks and benefits of going ahead with left elbow cubital tunnel release we have decided to proceed in that manner, without adding on the carpal tunnel release.? Certainly if the patient develops signs or symptoms consistent with the carpal tunnel syndrome could consider doing that at a later date although for now this is mild without subjective sensations there.? Certainly given the intrinsic muscle wasting and weakness there this may take a bit longer to improve although given the positive physical exam and nerve conduction studies with failure of conservative management this is indicated to go ahead with left elbow cubital tunnel release.? Patient signed consent form for that as well as possible need for blood products. Pros and cons risks and benefits were discussed with the patient including but not limited to infection, pain, stiffness, bleeding, damage to surrounding structures, neurovascular injury, recurrence or retear, failure or wear of hardware or fixation, instability, fracture, deep vein thrombosis and pulmonary embolism, anesthetic risks, , patient dissatisfaction, need for further surgery and other risks.? Patient understood and wished to proceed with surgery, and signed the informed consent documentation. [facility] Medical History Alcohol use Back pain Cardiology follow-up encounter Difficulty chewing Easy bruising Former smoker Gastric reflux High cholesterol History of edema History of irregular heartbeat History of pain when walking History of stress test Hyperlipemia Hypothyroidism Left carpal tunnel syndrome Leg cramps Low iron Nonhealing surgical wound Post-menopausal Shortness of breath on exertion Thyroid disease Ulnar neuropathy at elbow Wears dentures Wears glasses Home Medications miscellaneous medical supply #1 ea 10/11/21 [Rx Last Taken Unknown] levothyroxine 137 mcg tablet 137 mcg PO DAILY #90 tabs 04/26/22 [Rx Last Taken 12/11/22] cholecalciferol (vitamin D3) 25 mcg (1,000 unit) capsule 25 mcg PO BID 09/12/22 [History Last Taken Unknown] simvastatin 10 mg tablet 10 mg PO QHS #90 tabs 09/30/22 [Rx Last Taken Unknown] naproxen 250 mg tablet 220 mg PO DAILY 10/11/22 [History Last Taken 11/13/22] potassium chloride 10 mEq tablet,extended release (Klor-Con) 10 meq PO QHS 10/11/22 [History Last Taken Unknown] albuterol sulfate 90 mcg/actuation aerosol inhaler 2 puff inhalation BID BRONCHITIS 12/04/22 [History Last Taken Unknown] Allergy/AdvReac Type Severity Reaction Status Date / Time Sulfa (Sulfonamide Allergy Hives Verified 12/11/22 06:37 Antibiotics) Family History Grandfather Cancer Grandmother Myocardial infarction Diabetes Mother Cerebral hemorrhage Father Hypertension Gout Surgical History (Updated 12/04/22 @ 14:39 by Medina Montemayor) H/O colonoscopy History of History of left breast biopsy History of removal of cyst Hx of colonoscopy Social History Smoking Status: Former smoker Tobacco: How many years used: 21 alcohol intake: current alcohol intake frequency: 0-2 drinks per day Alcohol type: beer substance use type: does not use what type of physical activity do you participate in: walking Vital Signs Vital Signs Vital Signs: 12/11/22 06:39 12/11/22 06:39 Temperature 96.9 F L Temperature Source Temporal Pulse Rate 55 L Respiratory Rate 18 Respiratory Pattern Normal Blood Pressure 98/64 Blood Pressure Mean 75 Blood Pressure Source Monitor Blood Pressure Position Semi-Fowlers Blood Pressure Location Right Arm Pulse Ox 100 Oxygen Delivery Method Room Air Weight Weight: 202 lb Body Mass Index (BMI) 31.6
[2022-12-11] MEDS: Cefazolin 2 GM in 0.9% Normal Saline 100 ML IV (07:28)
--- NOTE | 2022-12-11 08:23 | OP.PCM_ITS ---
Problems Associated Problem List Diagnoses (1) Ulnar nerve entrapment: Report of Operation Date of Procedure: 12/11/22 Pre-Operative Diagnosis: Left elbow cubital tunnel syndrome Post-Operative Diagnosis: Same Surgery/Procedure Performed:: Left elbow cubital tunnel release Surgeon: Harjinder Jurado Type of Anesthesia: General and Local Anesthesiologist: Esdras Mobley Estimated Blood Loss (mL): 15cc Description of Procedure: Patient brought to the operating room theater. Placed supine on the operating room table. Hand table to the patient's left side. 18 inch tourniquet he applied to the left upper extremity appropriately padded. 2 g IV Ancef administered prior to the start of the procedure. General anesthesia induced. Left upper extremity prepped and draped in the usual sterile fashion regards to the base prep solution lying over 3 minutes drying time prior to draping. Preoperative timeout performed to confirm the site the patient and the surgery. All bony prominences appropriately padded. SCDs on the legs. Began by using a sterile #exsanguinating the limb inflating the tourniquet to 250 mmHg. Made a standard curvilinear incision at the medial aspect of the elbow directly over the ulnar nerve. Carried the dissection down through skin and subcutaneous tissue achieved meticulous hemostasis. Identified the ulnar nerve proximally. Released all the tissues over top of the nerve. Released all 5 sites of compression proximal medial intermuscular septum , arcade of str uthers fascia, Littlejohn's ligament Littlejohn's fascia between the 2 heads of the FCU both superficial and deep fascia, distally down to the level of the first motor branch. No impingement on the medial epicondyle. No snapping of the nerve the nerve tended to ride up towards medial epicondyle in full flexion beyond 140 degrees, but no nerve instability therefore decided to not do a transposition, leave the ulnar nerve in situ. Tourniquet let down meticulous hemostasis achieved. Used bipolar cautery. Subcutaneous tissue closed with 2-0 vicryl, skin with 3-0 monocryl. Skin cleaned with wet and dry dressing 10 cc quarter percent bupivacaine around the incision site. Steri-Strips applied followed by Adaptic 4 x 4 gauze loosely wrapped 4 inch Ken wrap. Case terminated dressing drapes and tourniquet removed. Patient woken up from the general anesthetic transferred off the operating table and taken to postanesthetic care unit in stable condition. All sponge needle instrument counts were correct no complications. Plan for the patient gentle range of motion no heavy lifting or gripping follow-up in the office in 2 days time. Complications none Admit VTE Documentation VTE Present on Admission: No VTE Mechan Device Prophylaxis: SCD's Reason prophylaxis not ordered:: Treatment Not Indicated Procedures Musculoskeletal 20xxx-29xxx: Other Procedure See Report
[2022-12-11 08:30] VITALS: BP 129/68; BP 98/64; PULSE 68; RESP 17; TEMP 36.3; O2SAT 96
--- NOTE | 2022-12-11 08:32 | DCINST_ITS ---
Discharge Instructions Diet Discharge Diet: No restrictions Activity Ice area for (Minutes): 10 Lifting Restrictions: ROM ok, no heavy lifting Dressing / Incision Call your doctor if your incision/area has: Continuous Slow Oozing, Sudden Increased Bleeding, Increased Pain/ Swelling, Increased Redness, Foul Smelling Discharge and Swelling at the incision site Remove Dressing in: leave in place till F/U Follow Up Care Please Follow Up With: Harjinder Jurado MD When: 2 days Test Results: Test results from this visit will be discussed in further detail at your follow- up appointment, if applicable. Discharge Plan Admission Attending Provider: Harjinder Jurado Primary Care Provider: Liza Castillo Discharge Orders/Prescriptions Prescriptions: No Action cholecalciferol (vitamin D3) 25 mcg (1,000 unit) capsule 25 mcg PO BID naproxen 250 mg Tablet 220 mg PO DAILY potassium chloride [Klor-Con 10] 10 mEq tablet extended release 10 meq PO QHS albuterol sulfate 90 mcg/actuation HFA aerosol inhaler 2 puff INHALATION BID Label Comments: Inhale 2 puffs every 4-6 hours for 7 days (DME) miscellaneous medical supply Misc See Rx Instructions .ROUTE .MEDSUPPLY Qty: 1 0RF Rx Instructions: As directed bilateral knee hi Compression stockings 20-30 mmHg apply in the AM and remove at bedtime levothyroxine 137 mcg tablet 137 mcg PO DAILY Qty: 90 3RF simvastatin 10 mg tablet 10 mg PO QHS Qty: 90 3RF Referrals / Follow Up: Liza Castillo MD [Primary Care Provider] - Harjinder Jurado MD [Med Staff - Active Staff] - Disposition Disposition (needs filled in before D/C Order can be placed): Home, Self Care
[2022-12-11 08:45] VITALS: BP 124/61; BP 98/64; PULSE 60; RESP 16; O2SAT 96
[2022-12-11 09:00] VITALS: BP 128/62; BP 98/64; PULSE 58; RESP 16; O2SAT 98
[2022-12-11 09:14] VITALS: BP 125/70; BP 98/64; PULSE 55; RESP 16; TEMP 36.4; O2SAT 95
[2022-12-11] MEDS: HYDROcodone Bitartrate/Apap 5/325 Tablet PO (09:33)
[2022-12-11 10:48] VITALS: BP 123/56; BP 98/64; PULSE 47; RESP 16; TEMP 36.4; O2SAT 98
== END 2022-12-11 11:13 | disposition home or self-care (01) ==
LOC: SDC 06:06 → AC 06:08
PROVIDERS: PCP Internal Medicine; Referring Provider Orthopaedic Surgery Sports Medicine; Visit Provider Orthopaedic Surgery Sports Medicine
PROC: (CPT 64718; principal; 2022-12-11 07:15)
DX: G56.22 Lesion of ulnar nerve, left upper limb (principal); E78.00 Pure hypercholesterolemia, unspecified; E03.9 Hypothyroidism, unspecified; E66.9 Obesity, unspecified; Z68.31 Body mass index [BMI] 31.0-31.9, adult; Z79.899 Other long term (current) drug therapy; Z87.891 Personal history of nicotine dependence
CPT/HCPCS: 64718; 01710; J7120; J2405

== ENCOUNTER → 2023-03-28 | Outpatient (CLI) | payer OTHER, SELFPAY ==
[2023-03-28 10:26] LABS: Absolute Lymphocyte Count 1.77 X10^3/uL (0.83-4.51); Absolute Neutrophil Count 2.9 X10^3/uL (2.0-7.7); Basophil# 0.05 X10^3/uL; Basophil% 0.9 % (0-1); Eosinophil# 0.27 X10^3/uL; Hematocrit 42.6 % (37-47); Hemoglobin 14.3 g/dL (12.0-15.0); Lymphocyte # 1.77 X10^3/ul (0.83-4.51); Lymphocyte % 32.6 % (19-41); Mean Corp Hgb Conc 33.6 g/dL (32-36); Mean Corpuscular Hgb 31.8 pg (27.0-32.0); Mean Corpuscular Volume 94.7 fL (81-99); Mean Platelet Vol. 9.4 fl (6.2-12.0); Monocyte# 0.41 X10^3/uL; Monocyte% 7.6 % (0-10); NRBC Flagged by Analyzer 0 % (0-5); Neutrophil # 2.92 X10^3/uL (2.7-7.7); Neutrophil % 53.7 % (47-70); Platelet Count 252 K/mm3 (150-450); RBC Distribution Width CV 12.6 % (11.6-14.6); RBC Distribution Width SD 43.3 fl (35.1-43.9); White Blood Count 5.4 K/mm3 (4.4-11.0)
[2023-03-28 10:51] LABS: Vitamin D,25 Hydroxy 124.1 ng/mL
[2023-03-28 11:00] LABS: ALB/GLOB Ratio 1.1 RATIO (0.9-2.4); AST(SGOT) 18 U/L (15-37); Alanine Aminotransfer ALT/SGPT 28 U/L (13-56); Albumin, Serum 3.6 g/dL (3.2-5.0); Alkaline Phosphatase 131 U/L (45-117); Anion Gap 6 (5-15); BUN 17 mg/dL (7-18); BUN/Creat Ratio 18.5 RATIO (10-20); Chloride 108 mmol/L (98-107); Cholesterol 163 mg/dL (200); Creatinine, Serum 0.92 mg/dL (0.55-1.02); EST Glomerular Filtration Rate 65 mL/min (>60); Est Glom Filt Rate - Afr Amer 79 mL/min (>60); Free T3 2.6 pg/mL (2.18-3.98); Globulin 3.2 g/dL (2.2-4.2); Glucose 103 mg/dL (74-106); High Density Lipoprotein 69 mg/dL; Magnesium 2.2 mg/dL (1.6-2.6); Protein, Total 6.8 g/dL (6.4-8.2); Sodium Level 140 mmol/L (136-145); Thyroid Stim Hormone (TSH) 1.22 uIU/mL (0.358-3.74); Triglycerides 126 mg/dL; Very Low Density Lipoprotein 25 mg/dL (5-40)
== END | disposition home or self-care (01) ==
LOC: LAB 09:34
PROVIDERS: PCP Internal Medicine; Referring Provider Internal Medicine; Visit Provider Internal Medicine
DX: R60.0 Localized edema (principal); E55.9 Vitamin D deficiency, unspecified; E66.9 Obesity, unspecified; E78.1 Pure hyperglyceridemia; E78.5 Hyperlipidemia, unspecified; E03.9 Hypothyroidism, unspecified; Z13.220 Encounter for screening for lipoid disorders; Z86.79 Personal history of other diseases of the circulatory system
CPT/HCPCS: 36415; 80053; 80061; 82306; 83735; 84439; 84443; 84481; 85025

== ENCOUNTER → 2023-10-01 | Outpatient (CLI) | payer OTHER, SELFPAY ==
[2023-10-01 12:13] LABS: Vitamin D,25 Hydroxy 102.7 ng/mL
[2023-10-01 12:29] LABS: Free T3 2.6 pg/mL (2.18-3.98); T4 Free Direct 1.28 ng/dL (0.76-1.46); Thyroid Stim Hormone (TSH) 1.12 uIU/mL (0.358-3.74)
--- OUTSIDE RECORDS SUMMARY | 2023-10-01 13:08 | XMS RPT_ITS | CCD ---
Author Name Unknown Address [address] [place] [address] Organization [facility] Care Team Providers Care Manager Image Name Role Phone MAHOGANY YE Unavailable Unavailable MINAL KAUFMAN Unavailable Unavailable MAHOGANY YE Unavailable Unavailable TALAMPAS MINAL Unavailable Unavailable TALAMPAS, MINAL Unavailable Unavailable MAHOGANY YE Unavailable Unavailable MAHOGANY YE Unavailable Unavailable LASHONDAAMPMIMI MINAL Unavailable Unavailable Minal Kaufman MD Primary Care Provider Allergies Allergy Classification Reported Allergen(s) Allergy Type Date of Onset Reaction(s) Facility (3 sources) Sulfonamides (Antibiotic); Translations: [SULFA (SULFONAMIDE ANTIBIOTICS)] Propensity to adverse reactions to drug (disorder) 5 Rash [facility] Other [place] [facility] Medications Completed/Discontinued Medications Medication Drug Class(es) Dates Sig (Normalized) Sig (Original) levothyroxine sodium 0.137 mg oral tablet (1 source) l-Thyroxine Start: 08-14-2021 take 1 tablet by mouth once daily before breakfast levothyroxine (SYNTHROID) 137 mcg tablet Indications: Encounter for long-term current use of medication Take 1 tablet by mouth daily before breakfast. 30 tablet 0 08/14/2021 Active Problems Active Problems Problem Classification Problem Date Documented Date Episodic/Chronic Cardiac dysrhythmias (3 sources) Supraventricular tachycardia; Translations: [Supraventricular tachycardia] Onset: 02-27-2011 02-27-2011 Chronic Disorders of lipid metabolism (1 source) Mixed hyperlipidemia; Translations: [Mixed hyperlipidemia] 07-08-2016 Chronic Other diseases of veins and lymphatics (1 source) Bilateral lower limb edema; Translations: [Chronic venous hypertension (idiopathic) without complications of bilateral lower extremity] Onset: 07-28-2017 07-28-2017 Chronic Other nervous system disorders (1 source) Carpal tunnel syndrome; Translations: [Carpal tunnel syndrome, unspecified upper limb] 08-20-2021 Chronic Other nutritional; endocrine; and metabolic disorders (1 source) Obese class I; Translations: [Obesity, unspecified] Onset: 09-16-2018 09-16-2018 Chronic Other screening for suspected conditions (not mental disorders or infectious disease) (1 source) Patient encounter status; Translations: [Encounter for screening mammogram for malignant neoplasm of breast] Episodic Other upper respiratory disease (1 source) Allergic rhinitis; Translations: [Allergic rhinitis, unspecified] Onset: 01-26-2007 01-26-2007 Chronic Thyroid disorders (1 source) Hypothyroidism; Translations: [Hypothyroidism, unspecified] Onset: 02-27-2011 02-27-2011 Chronic Unclassified (1 source) Unknown / UNK(Unknown) Onset: 11-11-2017 Past or Other Problems Problem Classification Problem Date Documented Da te Episodic/Chronic Other connective tissue disease (1 source) Calcaneal spur; Translations: [Calcaneal spur, unspecified foot] Onset: 04-01-2012 04-01-2012 Episodic Results Test Name Value Interpretation Reference Range Facil ity Encounters Encounter Date Encounter Type Care Provider Facility Start: 02-20-2022 ambulatory Minal birch MD Work Phone: Internal Medicine [facility] [place] Start: 11-11-2018 Ambulatory MAHOGANY YE Facility :[facility] Start: 11-11-2017 End: 11-11-2017 Ambulatory MAHOGANY YE [facility] Procedures Date Procedure Procedure Detail Performing Clinician Start: 10-04-2019 Adult depression scr eening assessment Minal Kaufman MD Work Phone: Start: 08-02-2019 Mammography Minal hollis MD Work Phone: Start: 07-09-2012 Colonoscopy Minal hollis MD Work Phone: Plan of Treatment Date Care Activity Detail Author Start: 10-01-2024 LIPID SCREEN LIPID SCREEN [facility] Start: 10-01-2022 DIABETES SCREEN DIABETES SCREEN [facility] Start: 07-09-2022 Colonoscopy COLONOSCOPY [facility] Start: 07-09-2022 COLORECTAL CANCER SCREENING COLORECTAL CANCER SCREENING [facility] Start: 04-25-2022 Influenza vaccination INFLUENZA (#1) [facility] Start: 08-30-2021 Urine microalbumin profile DTAP,TDAP,TD (2 - Td or Tdap) [facility] Start: 10-04-2020 Adult depression screening assessment DEPRESSION SCREENING [facility] Start: 10-04-2020 ANNUAL PCP TEAM CHRONIC DISEASE VISIT ANNUAL PCP TEAM CHRONIC DISEASE VISIT [facility] Start: 08-02-2020 Mammography MAMMOGRAM [facility] Start: 11-16-2018 HPV TESTING HPV TESTING [facility] Start: 11-16-2018 PAP TESTING PAP TESTING [facility] Start: 2008 SHINGRIX VACCINE (1 of 2) SHINGRIX VACCINE (1 of 2) [facility] Start: 12-07-2003 COLOGUARD (FIT-DNA) COLOGUARD (FIT-DNA) [facility] Start: 12-07-[address] COLONOGRAPHY [facility] Start: 12-07-2003 FECAL OCCULT BLOOD FECAL OCCULT BLOOD [facility] Start: 12-07-2003 SIGMOIDOSCOPY SIGMOIDOSCOPY [facility] Start: 1976 HEPATITIS C SCREENING HEPATITIS C SCREENING [facility] Start: 1976 HIV SCREENING HIV SCREENING [facility] Start: 06-07-1959 COVID-19 VACCINE (#1) COVID-19 VACCINE (#1) [facility] End: 03-22-2023 Screening mammography bi 2-view breast inc cad SEA SCREENING Radiology Routine Encounter for screening mammogram for breast cancer 1 Occurrences starting 02/20/2022 until 03/22/2023 [facility] Work Phone: Immunizations Immunization Date Immunization Notes Care Provider Fa cility 07-05-2018 influenza virus vacc ine, unspecified formulation Minal Kaufman MD Work Phone: [facility] 08-30-2011 tetanus toxoid, redu sarai diphtheria toxoid, and acellular pertussis vaccine, adsorbed Minal Kaufman MD Work Phone: [facility] Payers Date Payer Category Payer Unknown [employer] [id number] 2020-Present [phone] [address] [place] [address] Indemnity [id number] Medicaid [id number] Social History Date Type Detail Facility Tobacco smoking stat us NHIS Ex-smoker [facility] End: 03-04-2002 History of tobacco use Current smoker [facility] End: 03-04-2002 History of tobacco use Cigarette Smoker [facility] Start: 10-04-2019 Alcohol intake Current drinke r of alcohol (finding) [facility] Start: 10-04-2019 History SDOH Alcohol Frequency 2 [facility] Start: 10-04-2019 History SDOH Alcohol Std Drinks 1 [facility] Start: 10-04-2019 History SDOH Social Connections Phone 3 [facility] Start: 10-04-2019 History SDOH Social Connections Meetings 98 [facility] Start: 10-04-2019 History SDOH Social Connections Living 5 [facility] Start: 10-04-2019 History SDOH Physica l Activity DPW 0 [facility] Start: 10-04-2019 Education 21 [facility] Start: 1960 Sex Assigned At Not on file C [facility] Clinical Note 02-20-2022 Note Date & Type Note Facility 02-20-2022 Note Patient Outreach (IN TMMN) RAÚL CRAIG ([id number]) 1960 F Date Time Provider Department 02/20/22 MINAL KAUFMAN During your visit today, we recorded the following information about you: Allergies As of Date: 02/20/2022 Noted Allergy Reaction SULFA (SULFONAMIDE ANTIBIOTICS) 01/04/2015 2 - Rash Comments: Developed rash truncal on Bactrim DS Date Reviewed: 10/04/2019 Reviewed by: Shauna Kerr LPN - Fully Assessed Visit Diagnosis:Encounter for screening mammogram for breast cancer [Z12.31] Order(s):SEA SCREENING [[id number]] Order #: [id number] FUTURE Prescriptions as of 02/25/2022 - levothyroxine (SYNTHROID) 137 mcg tablet Take 1 tablet by mouth daily before breakfast. - simvastatin (ZOCOR) 10 mg tablet Take 1 tablet by mouth daily at bedtime. - potassium chloride ER (K-DUR, KLOR-CON) 20 mEq tablet Take 1 tablet by mouth once daily. Problem List As Of Date 02/20/2022 Noted Resolved Pain in joint, shoulder region [M25.519] 05/23/2006 08/01/2014 ALLERGIC RHINITIS NOS [J30.9] 01/26/2007 Pain in limb [M79.609] 01/03/2009 08/01/2014 Pain in joint, ankle and foot [M25.579] 02/03/2009 08/01/2014 PSVT (paroxysmal supraventricular tachycardia) *02/27/2011 Hypothyroidism [E03.9] 02/27/2011 CTS (carpal tunnel syndrome) [G56.00] Calcaneal spur [M77.30] 04/01/2012 Mixed hyperlipidemia [E78.2] Ill-fitting dentures [K08.89, Z97.2] 11/18/2014 09/16/2018 Stasis edema of both lower extremities [I87.303]07/28/2017 Obesity, Class I, BMI 30-34.9 [E66.9] 09/16/2018 Encounter Status:Closed by ANKITA REYNOSO on 02/25/22 [facility] Clinical Note 03-16-2021 Note Date & Type Note Facility 03-16-2021 Note Patient Outreach (IN TMMN) RAÚL CRAIG ([id number]) 1960 F Date Time Provider Department 03/16/21 MINAL KAUFMAN During your visit today, we recorded the following information about you: Allergies As of Date: 03/16/2021 Noted Allergy Reaction SULFA (SULFONAMIDE ANTIBIOTICS) 01/04/2015 2 - Rash Comments: Developed rash truncal on Bactrim DS Date Reviewed: 10/04/2019 Reviewed by: Shauna Kerr LPN - Fully Assessed Visit Diagnosis:Encounter for screening mammogram for breast cancer [Z12.31] Order(s):[facility] SCREENING [[id number]] Order #: [id number] FUTURE Prescriptions as of 03/19/2021 - levothyroxine (SYNTHROID) 137 mcg tablet Take 1 tablet by mouth daily before breakfast. - simvastatin (ZOCOR) 10 mg tablet Take 1 tablet by mouth daily at bedtime. - potassium chloride ER (K-DUR, KLOR-CON) 20 mEq tablet Take 1 tablet by mouth once daily. - naproxen (NAPROSYN) 500 mg tablet Take 1 tablet by mouth twice daily as needed. FOR PAIN. TAKE WITH FOOD. - VIT A/VIT C/BIOFLAV/ZN/HERB25 (ECHINACEA ACZ ORAL) Take 760 mg by mouth once daily. Problem List As Of Date 03/16/2021 Noted Resolved Pain in joint, shoulder region [M25.519] 05/23/2006 08/01/2014 ALLERGIC RHINITIS NOS [J30.9] 01/26/2007 Pain in limb [M79.609] 01/03/2009 08/01/2014 Pain in joint, ankle and foot [M25.579] 02/03/2009 08/01/2014 PSVT (paroxysmal supraventricular tachycardia) *02/27/2011 Hypothyroidism [E03.9] 02/27/2011 CTS (carpal tunnel syndrome) [G56.00] Calcaneal spur [M77.30] 04/01/2012 Mixed hyperlipidemia [E78.2] Ill-fitting dentures [K08.89, Z97.2] 11/18/2014 09/16/2018 Stasis edema of both lower extremities [I87.303]07/28/2017 Obesity, Class I, BMI 30-34.9 [E66.9] 09/16/2018 Encounter Status:Closed by ANGELES, PRODUSER on 03/19/21 [facility] History of Past illness Narrative 11-18-2014 Note Date & Type Note Facility documented as of this encounter (statuses as of 02/25/2022) [facility] Evaluation note Note Date & Type Note Facility documented in this encounter [facility] Reason for referral (narrative) Diagnostic Procedure Only (Routine) - Pending Review Note Date & Type Note Facility Referral ID Status Reason Start Date Expiration Date Visits Requested Visits Authorized [id number] Pending Review Auto-Generat ed Referral 02/20/2022 03/22/2023 1 1 [facility] Summary Purpose Family History No Family History Records FoundNo Family History Records FoundNo Family History Records Found Advance Directives No Advanced Directives Records FoundNo Advanced Directives Records FoundNo Advanced Directives Records Found Additional Source Comments INFORMATION SOURCE (unrecogn ized section and content) DATE CREATED AUTHOR AUTHOR'S ORGANIZ ATION 02/13/2018 [facility] DATE CREATED AUTHOR AUTHOR'S ORGANIZ ATION 02/25/2022 [facility] Source Comments (unrecognize d section and content) In the event this informatio n is protected by the Federal Confidentiality of Alcohol and Drug Abuse Patient Records regulations: The Federal rules restrict any use of the information to criminally investigate or prosecute any alcohol or drug abuse patient.[facility] Care Teams (unrecognized sec tion and content) FOR RECORDS PERTAINING TO PATIENTS WHO ARE OR HAVE BEEN ENROLLED IN A CHEMICAL DEPENDENCY/SUBSTANCEABUSE PROGRAM, SOME INFORMATION MAY BE OMITTED. This clinical summary was aggregated from multiple sources. Caution should be exercised in using it in the provision of clinical care. This summary normalizes information from multiple sources, and as a consequence, information in this document may materially change the coding, format and clinical context of patient data. In addition, data may be omitted in some cases. CLINICAL DECISIONS SHOULD BE BASED ON THE PRIMARY CLINICAL RECORDS. [employer] [facility]. provides no warranty or guarantee of the accuracy or completeness of information in this document.
== END | disposition home or self-care (01) ==
LOC: LAB 10:31
PROVIDERS: PCP Internal Medicine; Referring Provider Internal Medicine; Visit Provider Internal Medicine
DX: E03.9 Hypothyroidism, unspecified (principal); E55.9 Vitamin D deficiency, unspecified; E66.9 Obesity, unspecified
CPT/HCPCS: 36415; 82306; 84439; 84443; 84481

== ENCOUNTER → 2023-10-31 | Outpatient (CLI) | payer OTHER, SELFPAY ==
--- NOTE | 2023-10-31 08:36 | BI_ITS ---
MAMMOGRAPHY - BILATERAL SCREENING 3-D TOMOSYNTHESIS REASON FOR EXAM: Female, 62 years old. Breast CA screening, hx breast mass PERTINENT HISTORY: No significant family history. TECHNIQUE: 2-D mammograms and 3-D Tomosynthesis of the breast (s) were performed. CAD was performed. COMPARISON: 10/28/2022 FINDINGS: The breast composition is composed of scattered fibroglandular density. Scattered benign calcifications are seen. No dense spiculated masses or suspicious microcalcifications are identified. No architectural distortion is identified. There is no skin thickening or retraction. There has been no significant change since the prior study. BI/SCRN MAMM (CAD)W/FELIX BILAT IMPRESSION: No mammographic signs of malignancy. Routine yearly mammograms recommended. ASSESSMENT CATEGORY: BIRADS Category 1: Negative. A letter regarding these results will be sent to the patient by the facility within 30 days. FOLLOW UP RECOMMENDATION: Yearly follow up mammogram recommended. (A) Approximately 10% of breast cancers are not detected by mammography. A normal mammogram should not delay biopsy of a clinically suspicious abnormality. Electronically Signed: Cornelius Gallo MD at 14:04 EST ,
--- OUTSIDE RECORDS SUMMARY | 2023-10-31 08:57 | XMS RPT_ITS | CCD ---
Author Name Unknown Address [address] [place] [address] Organization [facility] Care Team Providers Care Sales Training Coordinator Name Role Phone MAHOGANY YE Unavailable Unavailable [...] adverse reactions to drug (disorder) 5 Rash [facility] Other [place] [facility] Medications Completed/Discontinued Medications Medication Drug Class(es) [...] birch MD Work Phone: Internal Medicine [facility] [place] Start: 11-11-2018 Ambulatory MAHOGANY YE Facility :[facility] Start: 11-11-2017 End: 11-11-2017 Ambulatory MAHOGANY YE [facility] Procedures Date Procedure Procedure Detail Performing Clinician Start: 10-04-2019 Adult depression scr eening assessment Minal Kaufman MD Work Phone: Start: 08-02-2019 Mammography Minal hollis MD Work Phone: Start: 07-09-2012 Colonoscopy Minal hollis MD Work Phone: Plan of Treatment Date Care Activity Detail Author Start: 10-01-2024 LIPID SCREEN LIPID SCREEN [facility] Start: 10-01-2022 DIABETES SCREEN DIABETES SCREEN [facility] Start: 07-09-2022 Colonoscopy COLONOSCOPY [facility] Start: 07-09-2022 COLORECTAL CANCER SCREENING COLORECTAL CANCER SCREENING [facility] Start: 04-25-2022 Influenza vaccination INFLUENZA (#1) [facility] Start: 08-30-2021 Urine microalbumin profile DTAP,TDAP,TD (2 - Td or Tdap) [facility] Start: 10-04-2020 Adult depression screening assessment DEPRESSION SCREENING [facility] Start: 10-04-2020 ANNUAL PCP TEAM CHRONIC DISEASE VISIT ANNUAL PCP TEAM CHRONIC DISEASE VISIT [facility] Start: 08-02-2020 Mammography MAMMOGRAM [facility] Start: 11-16-2018 HPV TESTING HPV TESTING [facility] Start: 11-16-2018 PAP TESTING PAP TESTING [facility] Start: 2008 SHINGRIX VACCINE (1 of 2) SHINGRIX VACCINE (1 of 2) [facility] Start: 12-07-2003 COLOGUARD (FIT-DNA) COLOGUARD (FIT-DNA) [facility] Start: 12-07-[address] COLONOGRAPHY [facility] Start: 12-07-2003 FECAL OCCULT BLOOD FECAL OCCULT BLOOD [facility] Start: 12-07-2003 SIGMOIDOSCOPY SIGMOIDOSCOPY [facility] Start: 1976 HEPATITIS C SCREENING HEPATITIS C SCREENING [facility] Start: 1976 HIV SCREENING HIV SCREENING [facility] Start: 06-07-1959 COVID-19 VACCINE (#1) COVID-19 VACCINE (#1) [facility] End: 03-22-2023 Screening mammography bi 2-view breast inc cad SEA SCREENING Radiology Routine Encounter for screening mammogram for breast cancer 1 Occurrences starting 02/20/2022 until 03/22/2023 [facility] Work Phone: Immunizations Immunization Date Immunization Notes Care Provider Fa cility 07-05-2018 influenza virus vacc ine, unspecified formulation Minal Kaufman MD Work Phone: [facility] 08-30-2011 tetanus toxoid, redu sarai diphtheria toxoid, and acellular pertussis vaccine, adsorbed Minal Kaufman MD Work Phone: [facility] Payers Date Payer Category Payer Unknown [employer] [id number] 2020-Present [phone] [address] [place] [address] Indemnity [id number] Medicaid [id number] Social History Date Type Detail Facility Tobacco smoking stat us NHIS Ex-smoker [facility] End: 03-04-2002 History of tobacco use Current smoker [facility] End: 03-04-2002 History of tobacco use Cigarette Smoker [facility] Start: 10-04-2019 Alcohol intake Current drinke r of alcohol (finding) [facility] Start: 10-04-2019 History SDOH Alcohol Frequency 2 [facility] Start: 10-04-2019 History SDOH Alcohol Std Drinks 1 [facility] Start: 10-04-2019 History SDOH Social Connections Phone 3 [facility] Start: 10-04-2019 History SDOH Social Connections Meetings 98 [facility] Start: 10-04-2019 History SDOH Social Connections Living 5 [facility] Start: 10-04-2019 History SDOH Physica l Activity DPW 0 [facility] Start: 10-04-2019 Education 21 [facility] Start: 1960 Sex Assigned At Not on file C [facility] Clinical Note 02-20-2022 Note Date & Type Note Facility 02-20-2022 Note Patient Outreach (IN TMMN) RAÚL CRAIG ([id number]) 1960 F Date Time Provider Department 02/20/22 [...] mammogram for breast cancer [Z12.31] Order(s):SEA SCREENING [[id number]] Order #: [id number] FUTURE Prescriptions as of 02/25/2022 - levothyroxine [...] Encounter Status:Closed by ANKITA REYNOSO on 02/25/22 [facility] Clinical Note 03-16-2021 Note Date & Type Note Facility 03-16-2021 Note Patient Outreach (IN TMMN) RAÚL CRAIG ([id number]) 1960 F Date Time Provider Department 03/16/21 MINAL KAUFMAN During your visit today, we recorded the following information about you: Allergies As of Date: 03/16/2021 Noted Allergy Reaction SULFA (SULFONAMIDE ANTIBIOTICS) 01/04/2015 2 - Rash Comments: Developed rash truncal on Bactrim DS Date Reviewed: 10/04/2019 Reviewed by: Shauna Kerr LPN - Fully Assessed Visit Diagnosis:Encounter for screening mammogram for breast cancer [Z12.31] Order(s):[facility] SCREENING [[id number]] Order #: [id number] FUTURE Prescriptions as of 03/19/2021 - levothyroxine [...] Encounter Status:Closed by ANGELES, PRODUSER on 03/19/21 [facility] History of Past illness Narrative 11-18-2014 Note Date & Type Note Facility documented as of this encounter (statuses as of 02/25/2022) [facility] Evaluation note Note Date & Type Note Facility documented in this encounter [facility] Reason for referral (narrative) Diagnostic Procedure Only (Routine) - Pending Review Note Date & Type Note Facility Referral ID Status Reason Start Date Expiration Date Visits Requested Visits Authorized [id number] Pending Review Auto-Generat ed Referral 02/20/2022 03/22/2023 1 1 [facility] Summary Purpose Family History No Family History Records FoundNo Family History Records FoundNo Family History Records Found Advance Directives No Advanced Directives Records FoundNo Advanced Directives Records FoundNo Advanced Directives Records Found Additional Source Comments INFORMATION SOURCE (unrecogn ized section and content) DATE CREATED AUTHOR AUTHOR'S ORGANIZ ATION 02/13/2018 [facility] DATE CREATED AUTHOR AUTHOR'S ORGANIZ ATION 02/25/2022 [facility] Source Comments (unrecognize d section and content) In the event this informatio n is protected by the Federal Confidentiality of Alcohol and Drug Abuse Patient Records regulations: The Federal rules restrict any use of the information to criminally investigate or prosecute any alcohol or drug abuse patient.[facility] Care Teams (unrecognized sec tion and [...] BE BASED ON THE PRIMARY CLINICAL RECORDS. [employer] [facility]. provides no warranty or guarantee of the accuracy or completeness of information in this document.
== END | disposition home or self-care (01) ==
LOC: OPBI 08:35
PROVIDERS: PCP Internal Medicine; Referring Provider Surgery; Visit Provider Surgery
DX: Z12.31 Encounter for screening mammogram for malignant neoplasm of breast (principal)
CPT/HCPCS: 77063; 77067

== ENCOUNTER → 2024-02-12 | Outpatient (CLI) | payer MEDICARE, SELFPAY ==
--- NOTE | 2024-02-12 12:59 | RAD_ITS ---
STUDY: X-RAY - RIGHT KNEE REASON FOR EXAM: Female, 63 years old. Knee pain TECHNIQUE: 3 view(s) of the knee. COMPARISON: None. FINDINGS: Normal visualized distal femur. Normal visualized proximal tibia and fibula. Normal proximal tibiofibular articulation. Normal medial femorotibial compartment. Normal lateral femorotibial compartment. Normal patellofemoral articulation. The soft tissue structures are unremarkable. RAD/Knee 3 Views IMPRESSION: Normal x-ray examination of the knee. Electronically Signed: Vern Man MD at 13:39 EDT ,
== END | disposition home or self-care (01) ==
LOC: MTRAD 12:59
PROVIDERS: PCP Internal Medicine; Referring Provider Nurse Practitioner; Visit Provider Nurse Practitioner
DX: M25.569 Pain in unspecified knee (principal)
CPT/HCPCS: 73562

== ENCOUNTER → 2024-03-11 | Outpatient (CLI) | payer MEDICARE, SELFPAY ==
--- NOTE | 2024-03-11 09:34 | VDLE_ITS ---
Reason For Study: RLE Pain RIGHT LEFT GSV is normal. CFV is compressible, spontaneous, phasic, CFV is compressible, spontaneous, phasic, competent, and demonstrates normal competent and demonstrates normal augmentation. augmentation. FV is compressible, spontaneous, phasic, competent and demonstrates normal augmentation. POP V is compressible, spontaneous, phasic, competent and demonstrates normal augmentation. T/P Trunk is compressible. PTV is compressible. RT PerV is compressible. Procedure This is a venous duplex using B-mode, color flow and spectral Doppler. Exam performed in department. The exam was diagnostic. A preliminary report was called and/or faxed to Dr. Castillo office. VL/Venous Duplex US, Unilateral Interpretation Summary There is no evidence of right lower extremity deep vein thrombosis. Right great saphenous vein appears patent and compressible segmentally. Normal flow patterns left common f emoral vein Ordering Physician: Liza Castillo Referring Physician: Liza Castillo Performed By: Krishna Alba RVT
== END | disposition home or self-care (01) ==
LOC: CVS 09:30
PROVIDERS: PCP Internal Medicine; Referring Provider Internal Medicine; Visit Provider Internal Medicine
DX: M79.89 Other specified soft tissue disorders (principal); M79.604 Pain in right leg
CPT/HCPCS: 93971

== ENCOUNTER 2024-04-06 13:30 | Outpatient (RCR) | payer MEDICARE, SELFPAY ==
--- NOTE | 2024-03-09 12:30 | HP.PTEVAL ---
Patient's Visit Information Visit Information Visit Information: RAÚL CRAIG is a 63 year old F referred to Physical Therapy by Dr. Liza Castillo MD with a diagnosis of R knee pain. Date of Evaluation: 03/09/24 Physical Therapist: GENIE Grisgby Visit Plan Frequency: 2x /Week Duration: 2 Months Plan: 2X/ week for 4 weeks for R knee AROM/AAROM, hip and knee strength, gait training, functional training with HEP. May use ice as needed HEP: Heel slides supine and sitting, QS, SLR, walking with a straight cane to take the pressure off the knee and ice several times a day Subjective Subjective: She was taking a few long walks due to her not having her car and the pain has been gradually increasing to the point it hurts. Her foot is cramping and a Dat horse back of her leg. She had no back pain. She thinks the brace is making it worse and [facility]. Her pain is all in the back of the R knee. 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 She has no stairs at home. Getting out of a chair is painful and has to use mostly her arms to help her room. She is struggling to roll over in bed as well. She thinks that her knee is really swollen. She has fallen many times on her knees and bruised them up. The pain does not keep her up at night. The [facility] did not show anything. She does not have an appt with her regular Dr. She does not have access to a walker or a cane. Her R foot is somewhat tingling Pain R knee pain: Pain Intensity (Out of 10): 8 Objective Objective: Pt stood up in the waiting room and said she was ready to cry and could barely walk. We got a wheelchair for her to push back to the treatment room and she was able to walk much better with some UE support. LE MMT R hip flex 6.5 and L 13.3 R knee ext 10 and L 17.3 R knee flex 3.7 and L 7.9 R hip and supine 10.4 and L 13.9 R knee AROM: -4 to 60 degrees (increase posterior knee pain ??? HS) Pt is able to SLR on the R. Pt has increase pain with QS on the R L knee AROM 0-125 At the end of treatment instructed pt in walking with a straight cane in her L hand and had no pain with walking... encouraged pt to walk with a straight cane Balance/Special Test Scores Lower Extremity Functional Score: 6 Goals Goal 1:: I HEP Goal Time Frame: 6-8 Weeks Goal 2:: Increase R knee AROM (at the time of the eval: -4 to 60 degrees) Goal Time Frame: 6-8 Weeks Goal 3:: Be able to walk with a normal gait pattern Goal Time Frame: 6-8 Weeks Goal 4:: Be able to get in and out of the car without having knee pain Goal Time Frame: 6-8 Weeks Rehabilitation Potential Rehabilitation Potential: Good Anticipated Interventions Patient/Client Instruction: Educate patient on: Condition and Plan of Care For the Purpose of:: To decrease pain, To decrease swelling/inflammation, To increase ROM, To improve nutrient delivery to tissue, To improve muscle performance and motor function, To improve ability to perform ADL's, To increase tolerance to activity/condition/position, To improve gait and locomotor functions, To improve health of tissue, To decrease soft tissue restriction and To increase flexibility/ROM Therapeutic Exercise to Include: Strength training, Endurance training, Flexibilty training, Gait and locomotor training, Neuromotor development, Passive ROM and Active ROM For the Purpose of:: To decrease pain, To decrease swelling/inflammation, To increase ROM, To improve nutrient delivery to tissue, To improve muscle performance and motor function, To improve ability to perform ADL's, To improve ability of physical actions for home/community/work/leisure, To improve gait and locomotor functions, To improve health of tissue, To decrease soft tissue restriction and To increase flexibility/ROM Functional Training to Include: Gait training For the Purpose of:: To improve gait and locomotor functions and To improve safety with gait Manual Therapy Techniques to Include: Passive ROM For the Purpose of:: To decrease pain, To decrease swelling/inflammation, To increase ROM and To improve nutrient delivery to tissue Cryotherapy (ice pack, ice massage): Yes For the Purpose of:: To decrease pain, To decrease swelling/inflammation, To increase ROM and To improve nutrient delivery to tissue Text: Thank you for the opportunity to evaluate your patient. For Medicare and Medicare HMO plans, please review the plan of care and approve it. It will need to be FAXED BACK to us at [phone] for Medicare purposes. For Medicare only, by signing this I certify the plan of care. Please let me know if there are questions or concerns regarding this plan of care. Physician Signature: Date:
--- NOTE | 2024-04-06 13:50 | HP.PTDCSUM ---
Discharge Summary D/C summary: It has been my pleasure to treat RAÚL CRAIG referred by Dr. Liza Castillo MD, with the diagnosis of R knee pain for a total of 8 visit(s). Discharge Date: 04/06/24 Please see the following information for a summary of their discharge status. Subjective Subjective: Pt reports very little to no improvement. She is seeing an ortho Dr lux. She is worse with the exercises and tries to do them until she is in pain. She is able to use the cane without using the brace and her ROM has improved. Pain R knee pain: Pain Intensity (Out of 10): 8 Overall Improvement % Improvement: 10 Objective Objective/Function: R knee AROM:-2 from full extension to 100 degrees R knee flexion Gait: Pt is able to walk with a straight cane with decrease stance time on the R LE, WBOS but increase stride length and decrease heel to toe gait pattern on the R. Goals Goal 1:: I HEP Goal Progress: Goal Met Goal 2:: Increase R knee AROM (at the time of the eval: -4 to 60 degrees) Goal 3:: Be able to walk with a normal gait pattern Goal Progress: Not Progressing Goal 4:: Be able to get in and out of the car without having knee pain Goal Progress: Not Progressing Plan Plan: 2X/ week for 4 weeks for R knee AROM/AAROM, hip and knee strength, gait training, functional training with HEP. May use ice as needed D/C Information Discharge Comments: DC PT to Dr gonzlaez/seda sentence: If there are questions or concerns regarding this patient's physical therapy, please feel free to call me at [phone]. Thank you for the referral of this patient. Sincerely, Carmen Lira, MPT Balance/Gait/Functional tests Balance/Special Test Scores Lower Extremity Functional Score: 14 Improvement % Improvement: 10
== END 2024-04-06 14:13 | disposition home or self-care (01) ==
LOC: PT 13:30
PROVIDERS: PCP Internal Medicine; Referring Provider Internal Medicine; Visit Provider Internal Medicine
DX: M25.561 Pain in right knee (principal)
CPT/HCPCS: 97016; 97110; 97162; 97530

== ENCOUNTER → 2024-05-21 | Outpatient (CLI) | payer MEDICARE, SELFPAY ==
--- NOTE | 2024-05-21 15:33 | MRI_ITS ---
STUDY: MRI RIGHT KNEE REASON FOR EXAM: Female, 63 years old. Right knee pain. TECHNIQUE: Standardized fat and water weighted pulse sequences were obtained in all 3 orthogonal planes. COMPARISON: X-ray February 12, 2024 FINDINGS: Normal medial meniscus. Normal hyaline cartilage of the medial femorotibial compartment. Normal medial femoral condyle and tibial plateau. Normal medial collateral ligamentous complex (MCL). Normal distal semimembranosus, gracilis and semitendinosus tendons. There is lateral meniscus tear of the body, series 6 images 16 and 17. There is diffuse, less than 50% thickness articular cartilage loss of the lateral femorotibial compartment. There is mild osteoarthritic spur formation of the lateral knee compartment. Normal proximal tibiofibular articulation. Normal lateral collateral (fibular) ligament. Normal popliteus tendon. Normal biceps femoris tendon. Normal anterior cruciate ligament (ACL). Normal posterior cruciate ligament (PCL). There is arthrosis of the patellofemoral articulation. There is mild spurring. There is diffuse, greater than 50% thickness articular cartilage loss of the patellofemoral compartment. Normal medial and lateral patellar retinaculum. Normal quadriceps tendon. Normal patellar tendon. Normal Hoffa''s fat pad. There is a small volume joint effusion. The soft tissues are unremarkable. The otherwise visualized osseous structures are unremarkable. MRI/Lower Ext Joint Only (Routine) IMPRESSION: Lateral meniscus tear. Degenerative change. Joint effusion. Electronically Signed: Umair Fatima MD at 15:57 EDT ,
== END | disposition home or self-care (01) ==
PROVIDERS: PCP Internal Medicine; Referring Provider Orthopaedic Surgery; Visit Provider Orthopaedic Surgery
DX: M17.11 Unilateral primary osteoarthritis, right knee (principal); M25.561 Pain in right knee
CPT/HCPCS: 73721

== ENCOUNTER 2024-07-15 03:11 | Emergency (ER) | payer MEDICARE, SELFPAY ==
[2024-07-15 03:12] VITALS: BP 184/94; PULSE 85; RESP 16; TEMP 36.6; O2SAT 95
[2024-07-15] MEDS: Ondansetron ODT 4 MG Tablet PO (03:50)
[2024-07-15] MEDS: diazePAM 5 MG Tablet PO (03:50)
[2024-07-15] MEDS: Morphine 4 MG/ML Syringe 8 MG IM (04:03)
--- NOTE | 2024-07-15 04:10 | RAD_ITS ---
INDICATION: pain EXAMINATION/TECHNIQUE: X-RAY - XR Ribs Unilateral W/ PA Chest Min 3 Views COMPARISON: No relevant prior comparison study available FINDINGS: SOFT TISSUES: No soft tissue swelling or gas. BONES: There are old healed left fourth and fifth rib fractures. No acute displaced fracture. No sclerotic or destructive changes observed. VISUALIZED LUNGS: Clear. No pneumothorax. RAD/Ribs Uni Min 3V w/PA Chest IMPRESSION: No evidence of displaced rib fracture. Electronically Signed: Lam Villeda MD at 6:17 EST ,
[2024-07-15 05:11] VITALS: BP 137/80; PULSE 81; RESP 18; O2SAT 93
[2024-07-15 06:13] VITALS: BP 130/86; PULSE 82; RESP 16; TEMP 36.5; O2SAT 91
--- NOTE | 2024-07-15 06:13 | EX.ED.DYSGE1 ---
HPI History of Present Illness Chief Complaint: Back Informant: patient Narrative Narrative: Patient is a 63-year-old female with past medical history of hypothyroidism and hyperlipidemia. She states she has had a week or so of congestion and cough and had recently talked to her family doctor about her symptoms. She states she was ordered a chest x-ray and prescribed a Z-Benito. However she states she was waiting to start the medication until she had her chest x-ray obtained. She states that this evening she developed a coughing spell and during it felt a pop in her left back region. She developed increased pain following the coughing event that was worse with motion and breathing and secondary to this she comes in for evaluation [facility] Medical History (Updated 07/15/24 @ 07:[address] Delbert Salamanca, ) Asthmatic bronchitis Cough Gastrocnemius muscle strain Left carpal tunnel syndrome Wears glasses Wears dentures Post-menopausal Alcohol use Thyroid disease Low iron Easy bruising High cholesterol Back pain Difficulty chewing Gastric reflux Former smoker Shortness of breath on exertion Leg cramps History of pain when walking History of edema Cardiology follow-up encounter History of stress test History of irregular heartbeat Ulnar neuropathy at elbow Nonhealing surgical wound Hyperlipemia Hypothyroidism Home Medications ?Medication ?Instructions ?Recorded ?Last Taken ?Type cholecalciferol (vitamin D3) 25 25 mcg PO BID 09/12/22 Unknown History mcg (1,000 unit) capsule levothyroxine 137 mcg tablet 137 mcg PO DAILY #90 tabs 04/22/24 Unknown Rx potassium chloride 10 mEq 10 meq PO QHS #90 tabs 04/22/24 Unknown Rx tablet,extended release (Klor-Con) simvastatin 10 mg tablet 10 mg PO QHS #90 tabs 04/22/24 Unknown Rx azithromycin 250 mg tablet See Rx Instructions PO .COMPLEX #6 07/14/24 Unknown Rx tabs codeine 10 mg-guaifenesin 100 mg/5 10 ml PO Q4-6H PRN cold symptoms 07/14/24 Unknown Rx mL oral liquid #200 mL methylprednisolone 4 mg tablets in See Rx Instructions PO PER PKG DIR 07/14/24 Unknown Rx a dose pack (Medrol (Benito)) #21 tabs azithromycin 250 mg tablet See Rx Instructions PO .COMPLEX #6 07/15/24 Unknown Rx (Zithromax Z-Benito) tabs benzonatate 200 mg capsule 200 mg PO TID PRN cough #30 caps 07/15/24 Unknown Rx diazepam 5 mg tablet (Valium) 5 mg PO TID PRN muscle spasm 5 07/15/24 Unknown Rx days #15 tabs oxycodone-acetaminophen 5 mg-325 1 tab PO Q6H PRN pain 3 days #12 07/15/24 Unknown Rx mg tablet (Percocet) tabs Allergy/AdvReac Type Severity Reaction Status Date / Time Sulfa (Sulfonamide Allergy Hives Verified 07/15/24 03:15 Antibiotics) Family History Grandfather Cancer Grandmother Myocardial infarction Diabetes Mother Cerebral hemorrhage Father Hypertension Gout Surgical History Hx of colonoscopy H/O colonoscopy History of left breast biopsy History of removal of cyst History of Social History Smoking Status: Former smoker Tobacco: How many years used: 21 alcohol intake: current alcohol intake frequency: 0-2 drinks per day Alcohol type: beer substance use type: does not use what type of physical activity do you participate in: walking ROS ROS ED Constitutional Constitutional ED: Denies chills or fever(s) Eyes Eyes: Denies change in vision ENT ENT ED: Reports rhinorrhea and sore throat Cardiovascular Cardiovascular: Denies chest pain Respiratory/Chest Respiratory/Chest: Reports cough; Denies dyspnea Gastrointestinal Gastrointestinal: Denies abdominal pain, diarrhea, nausea or vomiting Genitourinary Genitourinary ED: Denies dysuria Musculoskeletal Musculoskeletal: Reports back pain Integumentary Denies rash Neurologic Neurologic: Denies headache(s) Hematologic/Lymphatic Hematologic/Lymphatic: Denies easy bleeding or easy bruising EXAM Physical Exam Const Vital Signs: 07/15/24 03:12 07/15/24 05:11 07/15/24 06:13 Temperature 97.9 F 97.7 F L Temperature Source Temporal Pulse Rate 85 81 82 Respiratory Rate 16 18 16 Blood Pressure 184/94 H 137/80 H 130/86 H Blood Pressure Mean 124 99 100 Pulse Ox 95 93 91 Oxygen Delivery Method Room Air Room Air Positive well nourished and well developed General Appearance ED: well developed; Negative for pallor HEENT HEENT Narrative: No tongue or lip swelling no oral lesions no airway edema or compromise There is cobblestoning noted in the posterior pharynx consistent with sinus drainage without secondary findings to suggest infection Eyes PERRL and EOMs intact bilaterally General Eye ED: Negative for scleral icterus Neck supple and no JVD Chest Wall Chest Narrative: There is pain with palpation along the left posterior lateral rib cage rib regions 8-12 without obvious bony deformity or crepitance Resp normal respiratory effort Resp Narrative: Breath sounds are diminished throughout with faint rhonchi noted in the bilateral bases slightly greater on the left. However no signs of respiratory distress Cardio regular rate and regular rhythm Extremity normal to inspection Extremity Narrative: No asymmetric edema no pitting edema negative Homans' sign bilaterally Neuro oriented x3, CN's II-XII intact bilaterally and no sensory deficits noted Sensorium / Orientation: alert Motor Exam: strength 5/5 throughout Psych mental status grossly normal Skin no rashes or lesions noted and no wounds Skin Narrative: No overlying soft tissue changes to suggest trauma or infection General Skin Exam: Negative for jaundice or pallor MDM MDM MDM Narrative Medical decision making narrative: Patient presented to the ER with stable vitals and in no acute respiratory distress. She reported sudden onset of pain along the left back/rib cage after a coughing spell. Concern is for spontaneous rib fracture versus pneumothorax versus pneumonia. As she is in no respiratory distress does not have fever and is not hypoxic I do not feel need for laboratory studies. Also has the pain began after a coughing spell and did not come on spontaneously I have low concern for pulmonary embolus and do not feel the need for D-dimer or CTA. Patient had a rib series with chest x-ray obtained which revealed no pneumonia infiltrate or pneumothorax or rib fracture indicating she has bronchitis with muscular spasm. After receiving medication in the ER she reports feeling better and remains in no acute respiratory distress and therefore she prescribed symptomatic medication and is otherwise safe for discharge History & Record Review Discussion w/independent historian: Patient Radiography Diagnostic Testing: Clinical Impression(s) from Imaging Studies Ribs w/Chest X-Ray 07/15/24 04:10 IMPRESSION: No evidence of displaced rib fracture. Electronically Signed: Lam Villeda MD at 6:17 EST Reading Location ID and State: [facility] / [place] Tel , Service support , Left rib series with 1 view chest as interpreted by the emergency medicine physician reveals no acute rib fracture pneumothorax or infiltrate Discharge Plan Triage Chief Complaint: Back ED Provider: Delbert Salamanca Dx/Rx/DC Orders Clinical Impression: Bronchitis, Muscle spasm, Hypothyroidism, Hyperlipemia Instructions: ED Back Sprain/Strain, ED Bronchitis with Wheezing (Adult) Prescriptions: New oxycodone-acetaminophen [Percocet] 5-325 mg tablet 1 tab PO Q6H PRN (Reason: pain) 3 Days Qty: 12 0RF diazepam [Valium] 5 mg tablet 5 mg PO TID PRN (Reason: muscle spasm) 5 Days Qty: 15 0RF benzonatate 200 mg capsule 200 mg PO TID PRN (Reason: cough) Qty: 30 0RF azithromycin [Zithromax Z-Benito] 250 mg tablet See Rx Instructions .ROUTE .COMPLEX Qty: 6 0RF Rx Instructions: For 250 mg dose pack: take 500 mg today (day 1), then 250 mg for 4 days (days 2-5) No Action cholecalciferol (vitamin D3) 25 mcg (1,000 unit) capsule 25 mcg PO BID azithromycin 250 mg tablet See Rx Instructions PO .COMPLEX Qty: 6 0RF Rx Instructions: For 250 mg dose pack: take 500 mg today (day 1), then 250 mg for 4 days (days 2-5) PO codeine-guaifenesin 10-100 mg/5 mL liquid 10 ml PO Q4-6H PRN (Reason: cold symptoms) Qty: 200 0RF methylprednisolone [Medrol (Benito)] 4 mg tablets,dose pack See Rx Instructions PO PER PKG DIR Qty: 21 0RF Rx Instructions: PO PER PKG DIR for 6 days levothyroxine 137 mcg tablet 137 mcg PO DAILY Qty: 90 3RF potassium chloride [Klor-Con 10] 10 mEq tablet extended release 10 meq PO QHS Qty: 90 3RF simvastatin 10 mg tablet 10 mg PO QHS Qty: 90 3RF Primary Care Provider: Liza Castillo Referrals: Liza Castillo MD [Primary Care Provider] - Activity Restrictions/Additional Instructions: Please do not take the guaifenesin with codeine as you are now being prescribed Percocet and Valium for pain control and muscle spasm. If the pharmacy does not have the Z-Benito prescription which was sent over from your family doctor then you may use the printed [address] of this. If you have any further concerns or worsening of symptoms please return to the ER for repeat evaluation Print Language: Nigerien Disposition Disposition: Home, Self Care Discharge Date/Time: 07/15/24 06:22
[2024-07-15] MEDS: Azithromycin 250 MG Tablet 500 MG PO (06:20)
== END 2024-07-15 06:22 | disposition home or self-care (01) ==
PROVIDERS: Emergency Provider Emergency Medicine; PCP Internal Medicine; Visit Provider Emergency Medicine
DX: J40 Bronchitis, not specified as acute or chronic (principal); E78.00 Pure hypercholesterolemia, unspecified; M62.838 Other muscle spasm; Z79.899 Other long term (current) drug therapy; Z87.891 Personal history of nicotine dependence
CPT/HCPCS: 71101; 99283

== ENCOUNTER → 2024-11-01 | Outpatient (CLI) | payer MEDICARE, MEDICAID, SELFPAY ==
--- NOTE | 2024-11-01 10:00 | BI_ITS ---
PROCEDURE: SCRN MAMM (CAD)W/FELIX BILAT REASON FOR EXAM: F, Age 63 y/o, no family history. History of prior left ultrasound-guided breast biopsy. TECHNIQUE: Bilateral screening digital breast tomosynthesis with 2D and 3D images. Computer aided detection. COMPARISON: Prior exam(s) dating back to comparison is made with prior study dated October 31, 2023.. FINDINGS: There are scattered areas of fibroglandular density. Stable examination. No suspicious masses, areas of developing architectural distortion, or suspicious calcifications. BI/SCRN MAMM (CAD)W/FELIX BILAT IMPRESSION: BI-RADS 1: NEGATIVE. RECOMMEND ANNUAL MAMMOGRAPHIC SCREENING. Follow-up code: Routine Follow-up The patient will be notified of the results by letter. Reading Location: [place] [id number]
== END | disposition home or self-care (01) ==
LOC: OPBI 09:56
PROVIDERS: PCP Internal Medicine; Referring Provider Surgery; Visit Provider Surgery
DX: Z12.31 Encounter for screening mammogram for malignant neoplasm of breast (principal)
CPT/HCPCS: 77063; 77067

== ENCOUNTER → 2025-04-12 | Outpatient (CLI) | payer MEDICARE, MEDICAID, SELFPAY ==
--- NOTE | 2025-04-12 07:27 | CT_ITS ---
PROCEDURE: CHEST WITHOUT CONTRAST 04/12/2025 REASON FOR EXAM: CHRONIC COUGH, FORMER SMOKER TECHNIQUE: Chest CT without contrast. Coronal and Sagittal reconstruction series were provided. One or more dose reduction techniques were used (e.g., Automated exposure control, adjustment of the mA and/or kV according to patient size, use of iterative reconstruction technique RADIATION DOSE SUMMARY: CTDlvol: 16.93 mGy DLP: 554.13 mGycm COMPARISON: None FINDINGS: Hardware: None Lymph nodes: Small benign-appearing bilateral axillary lymph nodes. Small benign mediastinal lymph nodes. Heart and Vasculature: The heart is not enlarged. Atherosclerotic calcifications of the thoracic aorta. Thoracic aorta and pulmonary arteries have normal contours; noncontrast technique limits evaluation. Coronary Artery Calcifications: Mild degree of coronary artery calcification. Lungs and Airways: Mild emphysematous changes are present. No focal infiltrate. No suspicious nodules are seen. Pleura: No pleural effusion Upper Abdomen: There is a small sliding hiatal hernia. Bones: Degenerative changes of the thoracic spine. CT/Chest without Contrast IMPRESSION: Coronary artery calcification (CAC) is is present No acute abnormality is seen. Reading Location: [id number]
[2025-04-12 10:00] LABS: Hematocrit 45.3 % (37-47); Hemoglobin 15.2 g/dL (12.0-15.0); Immature Granulocytes Count 0.020 X10^3/uL (0.0-0.0); Mean Corp Hgb Conc 33.6 g/dL (32-36); Mean Corpuscular Volume 95.6 fL (81-99); Mean Platelet Vol. 8.8 fl (6.2-12.0); NRBC Flagged by Analyzer 0 % (0-5); Platelet Count 281 K/mm3 (150-450); RBC Distribution Width CV 12.5 % (11.6-14.6); RBC Distribution Width SD 43.9 fl (35.1-43.9); Red Blood Count 4.74 M/mm3 (4.2-5.4); White Blood Count 7.4 K/mm3 (4.4-11.0)
[2025-04-12 11:13] LABS: AST(SGOT) 25 U/L (<=31); Alanine Aminotransfer ALT/SGPT 28 U/L (<=34); Albumin, Serum 4.3 g/dL (3.4-4.8); Alkaline Phosphatase 116 U/L (35-104); Anion Gap 14 (5-15); BUN 11 mg/dL (4-19); BUN/Creat Ratio 13.1 RATIO (10-20); Calcium,Total 10.1 mg/dL (7.6-11.0); Carbon Dioxide 25.8 mmol/L (21.0-32.0); Chloride 102 mmol/L (98-108); Cholesterol 156 mg/dL (<=200); Free T3 3.2 pg/mL (2.18-3.98); Globulin 2.7 g/dL (2.2-4.2); Glucose 112 mg/dL (70-99); Low Density Lipoprotein Calc. 64 mg/dL; Potassium 3.7 mmol/L (3.3-5.1); Triglycerides 135 mg/dL; Very Low Density Lipoprotein 27 mg/dL (5-40); Vitamin B12 525 pg/mL (180-914); Vitamin D,25 Hydroxy 48.5 ng/mL (30-100); cholesterol:hdl ratio screen 2.41
== END | disposition home or self-care (01) ==
LOC: CT 07:22
PROVIDERS: PCP Internal Medicine; Referring Provider Internal Medicine; Visit Provider Internal Medicine
DX: J45.909 Unspecified asthma, uncomplicated (principal); I87.8 Other specified disorders of veins; E55.9 Vitamin D deficiency, unspecified; E66.9 Obesity, unspecified; E78.1 Pure hyperglyceridemia; E03.9 Hypothyroidism, unspecified; R73.9 Hyperglycemia, unspecified; Z87.891 Personal history of nicotine dependence
CPT/HCPCS: 36415; 71250; 80053; 80061; 82306; 82607; 83036; 84439; 84443; 84481; 85025; 94060; 94726; 94729